=== PATIENT | female | born 1995 | race Hispanic/Latino ===

== ENCOUNTER 2018-01-28 16:15 | Emergency (ER) | payer SELFPAY ==
--- OUTSIDE RECORDS SUMMARY | 2018-01-28 16:18 | XMS REPORT | Clinical Summary ---
:1995 Author Organization [facility] Address [address] [place] [address] Care Team Providers Name Role Phone Reji Pineda RN Primary Care Provider Unavailable Allergies Active Allergy Reactions Severity Noted Date Comments Penicillins Rash Low 11/01/2016 Current Medications No known medications Active Problems Problem Noted Date Hydronephrosis with obstructing calculus 11/02/2016 Pyelonephritis, acute 11/02/2016 Leukocytosis 11/01/2016 Sepsis 11/01/2016 Social History Tobacco Use Types Packs/Day Years Used Date Never Smoker Alcohol Use Drinks/Week oz/Week Comments No Sex Assigned at Date Recorded Not on file Last Filed Vital Signs Not on file Plan of Treatment Health Maintenance Due Date Last Done Comments CERVICAL CANCER SCREENING 2014 INFLUENZA VACCINE 03/01/2018 Implants Implanted Type Area Grinder Outside Diameter Device Expiration Model / Identifier Date Serial / Lot Stent Uretl Universa 6fr 24cm Hydrphlc With Gw - [id number] Urological N/A: [employer] 08/09/2019 [id number] / Implanted: 11/01/2016 (Quantity not on file) Implants or N/A / Sets [id number] Stent Uretl Universa 6fr 24cm Hydrphlc With Gw - [id number] Urological Left: [employer] 08/23/2019 [id number] / Implanted: Qty: 1 on 11/04/2016 by Monica Alvarado MD Implants or N/A / Sets [id number] Results Not on fileafter 01/27/2017
[2018-01-28] MEDS ORDERED: CYCLOBENZAPRINE 10 MG TAB ONE (17:09)
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
[2018-01-28 18:42] VITALS: TEMP 99
[2018-01-28 18:44] VITALS: BP 120/69; O2SAT 100
== END 2018-01-28 18:38 | disposition home or self-care (01) ==
LOC: ER 16:15
DX: S33.5XXA Sprain of ligaments of lumbar spine, initial encounter (principal); V49.49XA Driver injured in collision with other motor vehicles in traffic accident, initial encounter; Y93.89 Activity, other specified; Y92.410 Unspecified street and highway as the place of occurrence of the external cause; Z88.1 Allergy status to other antibiotic agents; Z88.0 Allergy status to penicillin; N39.0 Urinary tract infection, site not specified
CPT/HCPCS: 72100; 87077; 87086; 87088; 87186; 99284

== ENCOUNTER 2018-04-17 08:18 | Emergency (ER) | payer SELFPAY ==
--- OUTSIDE RECORDS SUMMARY | 2018-04-17 08:20 | XMS REPORT | Clinical Summary ---
:1995 Author Organization [facility] Address [address] [place] [id number] Care Team Providers Name Role Phone Reji [...] INFLUENZA VACCINE 03/01/2018 Implants Implanted Type Area Esl Instructor Device Expiration Model / Identifier Date Serial / Lot Stent Uretl Universa 6fr 24cm Hydrphlc With Gw - [id number] Urological N/A: [employer] 08/09/2019 [id number] / Implanted: 11/01/2016 (Quantity not on file) Implants or N/A / Sets [id number] Stent U[employer]a 6fr 24cm Hydrphlc With Gw - [id number] Urological Left: [employer] 08/23/2019 [id number] / Implanted: Qty: 1 on 11/04/2016 by Monica Alvarado MD Implants or N/A / Sets [id number] Results Not on fileafter 04/16/2017
[2018-04-17] MEDS ORDERED: ONDANSETRON 4 MG/2 ML VIAL ONE (08:57)
[2018-04-17] MEDS ORDERED: NA CHLORIDE 0.9% 1,000 ML ONE (08:57)
[2018-04-17] MEDS ORDERED: KETOROLAC 30 MG/ML INJ ONE (08:57)
[2018-04-17 09:09] LABS: Absolute Lymphocytes (CBC) 2.4 K/uL (0.7-4.9); Absolute Monocytes 0.5 K/uL (0.1-1.3); Absolute Neutrophil 5.3 K/uL (1.8-8.0); Basophils % 0.5 % (0-1.3); Eosinophils % 1.7 % (0-4.4); Hematocrit 40.2 % (36.0-45.0); Lymphocytes % 29.2 % (15.3-44.8); MCH 28.5 pg (27.0-35.0); MCV 84.5 fL (80-100); MPV 9.3 fL (7.6-11.3); Monocytes % 5.7 % (3.3-12.3); RBC Red Blood Cell Count 4.76 M/uL (3.86-4.86)
[2018-04-17 09:21] LABS: Urine Blood 1+ (NEG); Urine Glucose NEGATIVE (NEG); Urine Protein NEGATIVE (NEG); Urine Specific Gravity >1.030 (1.005-1.030); Urine pH 5.5 (5.0-7.0)
[2018-04-17 09:24] LABS: Albumin 3.9 g/dL (3.4-5.0); Bilirubin Direct 0.2 mg/dL (0-0.2); Bilirubin Total 0.5 mg/dL (0.2-1.0); Potassium 3.5 mmol/L (3.5-5.1)
[2018-04-17 09:28] LABS: Urine Bacteria >50 /HPF (<20)
[2018-04-17 09:29] LABS: Urine Culture Reflex Order NOT NEEDED
--- NOTE | 2018-04-17 09:51 | RAD REPORT ---
EXAM DESCRIPTION: CT - Stone Protocol - 04/17/2018 9:33 am CLINICAL HISTORY: Back pain, epigastric pain, history of kidney stones with lithotripsy COMPARISON: CT study August 2016 TECHNIQUE: Axial 5 mm thick images were obtained without oral or IV contrast. The [id number] span s the entirety of the system partially obscuring uppermost abdomen and lung bases. All CT scans are performed using dose optimization technique as appropriate and may include automated exposure control or mA/KV adjustment according to patient size. FINDINGS: No hydronephrosis is present and no obstructing ureteral calculi. No suspicious renal mass es. Isodense masses and pyelonephritis are not excluded on a stone protocol CT scan. Punctate less th an 1 mm sized caliceal calculi present lower pole right kidney. No calculi seen in the contracted uri nary bladder. Uterus and ovaries show no suspicious finding. Imaged portions of the liver, spleen and pancreas show no suspicious findings on non-contrast imaging . No gallbladder or biliary tree abnormality identified. Gallstones can be occult. Liver shows a bord jose luis to mild fatty infiltration pattern. No adrenal abnormality. No suspicious bowel findings. No appendicitis. No hernia, mass or bulky lymphadenopathy noted. No free air, free fluid or inflammatory stranding. No significant bony abnormality. IMPRESSION: No hydronephrosis, obstructing calculus or other acute finding. Punctate less than 1 mm size caliceal calculi seen lower pole right kidney similar to comparison. Isodense masses and pyelonephritis are not excluded on stone protocol technique. No other significant finding or significant change from prior imaging.
--- NOTE | 2018-04-17 09:55 | ER ---
Nurse's Notes [facility] Name: Gloria Ibarra Age: 23 yrs Sex: Female : 1995 Arrival Date: 04/17/2018 Time: 08:20 Bed 15 Private MD: None, None Diagnosis: Urinary tract infection, site not specified Presentation: 04/17 08:28 Presenting complaint: Patient states: " I am having pain in my lower back and my ph stomach. It started yesterday and was worse this morning." Reports mid back and epigastric pain, also reports N/V, denies fever or diarrhea. Transition of care: patient was not received from another setting of care. Onset of symptoms was April 17, 2018. Risk Assessment: Do you want to hurt yourself or someone else? Patient reports no desire to harm self or others. Initial Sepsis Screen: Does the patient meet any 2 criteria? No. Patient's initial sepsis screen is negative. Does the patient have a suspected source of infection? No. Patient's initial sepsis screen is negative. Care prior to arrival: None. 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 - Social history:: Smoking status: Patient/guardian denies using tobacco. - Ebola Screening: : No symptoms or risks identified at this time. Screenin:32 Abuse screen: Denies threats or abuse. Denies injuries from another. Nutritional ph screening: On. Tuberculosis screening: No symptoms or risk factors identified. Fall Risk None identified. Assessment: 08:32 General: Appears in no apparent distress. uncomfortable, obese, well groomed, Behavior ph is calm, cooperative, appropriate for age, Denies fever. Pain: Complains of pain in epigastric area and lumbar area. Neuro: Level of Consciousness is awake, alert, obeys commands, Oriented to person, place, time, situation. Cardiovascular: Capillary refill is > 3 seconds Patient's skin is warm and dry. Respiratory: Airway is patent Respiratory effort is even, unlabored, Respiratory pattern is regular, symmetrical. GI: Abdomen is non-distended, obese, Bowel sounds present X 4 quads. Abd is soft X 4 quads Abdomen is tender to palpation in epigastric area Reports upper abdominal pain, epigastric pain, nausea, vomiting. : Denies burning with urination, inability to void, urinary frequency. Derm: Skin is intact, is healthy with good turgor, Skin is pink, warm \\T\\ dry. Musculoskeletal: Circulation, motion, and sensation intact. Range of motion: intact in all extremities. 10:00 Reassessment: Patient appears in no apparent distress at this time. Patient and/or ph family updated on plan of care and expected duration. Pain level reassessed. Patient is alert, oriented x 3, equal unlabored respirations, skin warm/dry/pink. Pt reports that pain has decreased to 7/10 and denies nausea, awaiting d/c. Vital Signs: 08:30 BP 120 / 87; Pulse 81; Resp 18; Temp 97.9; Pulse Ox 100% on R/A; Weight 95.25 kg; ph Height 5 ft. 6 in. (167.64 cm); Pain 9/10; 09:28 BP 103 / 71; Pulse 72; Resp 16; Pulse Ox 99% on R/A; dh3 10:26 BP 111 / 73; Pulse 76; Resp 18; Temp 97.8; Pulse Ox 99% on R/A; ph 08:30 Body Mass Index 33.89 (95.25 kg, 167.64 cm) ph ED Course: 08:20 Patient arrived in ED. sb2 08:20 None, None is Private Physician. sb2 08:22 Maria Del Carmen Pate FNP-C [facility]. kb 08:22 Edson Elizabeth MD is Attending Physician. kb 08:22 Saumya Heller, RENETTA is Primary Nurse. ph 08:30 Triage completed. ph 08:32 Arm band placed on. ph 08:34 Patient has correct armband on for positive identification. Bed in low position. Call ph light in reach. Side rails up X 1. Pulse ox on. NIBP on. Warm blanket given. 08:37 Initial lab(s) drawn, by me, sent to lab. Inserted saline lock: 20 gauge in left dh3 antecubital area, using aseptic technique. Blood collected. 08:37 Urine collected: clean catch specimen, cloudy, marely colored. [facility] 09:33 CT Stone Protocol In Process Unspecified. EDIL 09:33 CT completed. Patient tolerated procedure well. Patient moved to IL. 10:27 No provider procedures requiring assistance completed. IV discontinued, intact, ph bleeding controlled, No redness/swelling at site. Pressure dressing applied. Administered Medications: 08:57 Drug: Zofran 4 mg Route: IVP; Site: left antecubital; ph 09:58 Follow up: Response: No adverse reaction; Nausea is decreased ph 08:57 Drug: TORadol 30 mg Route: IVP; Site: left antecubital; ph 10:25 Follow up: Response: No adverse reaction; Pain is decreased ph 08:58 Drug: NS 0.9% 1000 ml Route: IV; Rate: 1000 ml; Site: left antecubital; ph 10:25 Follow up: Response: No adverse reaction; IV Status: Completed infusion ph 09:55 Drug: Rocephin - (cefTRIAXone) 1 grams Route: IVPB; Infused Over: 30 mins; Site: left ph antecubital; 10:25 Follow up: Response: No adverse reaction; IV Status: Completed infusion ph Outcome: 09:54 Discharge ordered by . kb 10:27 Discharged to home ambulatory. ph 10:27 Condition: good 10:27 Discharge instructions given to patient, Instructed on discharge instructions, follow up and referral plans. medication usage, Demonstrated understanding of instructions, follow-up care, medications, Prescriptions given X 1. 10:28 Patient left the ED. ph Signatures: Dispatcher [employer] EDIL Maria Del Carmen Pate, Erica Pierce Patricia, RN RN Pat Sesay 3 Milli Mast
--- NOTE | 2018-04-17 09:55 | EDPHYS ---
Physician Documentation [facility] Name: Gloria Ibarra Age: 23 yrs Sex: Female : 1995 Arrival Date: 04/17/2018 Time: 08:20 Bed 15 Private MD: None, None ED Physician Edson Elizabeth HPI: 04/17 09:11 This 23 yrs old Female presents to ER via Ambulatory with complaints of Low kb Back Pain, Abdominal Pain. 09:44 The patient complains of pain in the left flank and right flank. The pain radiates to kb the epigastric area. Onset: The symptoms/episode began/occurred yesterday. Modifying factors: The symptoms are alleviated by nothing. the symptoms are aggravated by movement, palpation/percussion. Associated signs and symptoms: The patient has no apparent associated signs or symptoms. Severity of pain: At its worst the pain was moderate in the emergency department the pain is unchanged. The patient has experienced similar episodes in the past, a few times, today's symptoms are similar, to previous kidney stones. The patient has not recently seen a physician. 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 - Social history:: Smoking status: Patient/guardian denies using tobacco. - Ebola Screening: : No symptoms or risks identified at this time. ROS: 09:48 Constitutional: Negative for fever, chills, and weight loss, Cardiovascular: Negative kb for chest pain, palpitations, and edema, Respiratory: Negative for shortness of breath, cough, wheezing, and pleuritic chest pain, : Negative for injury, bleeding, discharge, and swelling, MS/Extremity: Negative for injury and deformity, Skin: Negative for injury, rash, and discoloration, Neuro: Negative for headache, weakness, numbness, tingling, and seizure. 09:48 Abdomen/GI: Positive for abdominal pain, Negative for nausea, vomiting, and diarrhea. 09:48 Back: Positive for flank pain, bilaterally. Exam: 09:48 Constitutional: This is a well developed, well nourished patient who is awake, alert, kb and in no acute distress. Head/Face: Normocephalic, atraumatic. Neck: Trachea midline, no thyromegaly or masses palpated, and no cervical lymphadenopathy. Supple, full range of motion without nuchal rigidity, or vertebral point tenderness. No Meningismus. Chest/axilla: Normal chest wall appearance and motion. Nontender with no deformity. No lesions are appreciated. Cardiovascular: Regular rate and rhythm with a normal S1 and S2. No gallops, murmurs, or rubs. Normal PMI, no JVD. No pulse deficits. Respiratory: Lungs have equal breath sounds bilaterally, clear to auscultation and percussion. No rales, rhonchi or wheezes noted. No increased work of breathing, no retractions or nasal flaring. Skin: Warm, dry with normal turgor. Normal color with no rashes, no lesions, and no evidence of cellulitis. MS/ Extremity: Pulses equal, no cyanosis. Neurovascular intact. Full, normal range of motion. Neuro: Awake and alert, GCS 15, oriented to person, place, time, and situation. Cranial nerves II-XII grossly intact. Motor strength 5/5 in all extremities. Sensory grossly intact. Cerebellar exam normal. Normal gait. 09:48 Abdomen/GI: Inspection: abdomen appears normal, Bowel sounds: normal, in all quadrants, Palpation: soft, in all quadrants, mild abdominal tenderness, in the left upper quadrant. 09:48 Back: CVA tenderness, that is moderate, is noted bilaterally. Vital Signs: 08:30 BP 120 / 87; Pulse 81; Resp 18; Temp 97.9; Pulse Ox 100% on R/A; Weight 95.25 kg; ph Height 5 ft. 6 in. (167.64 cm); Pain 9/10; 09:28 BP 103 / 71; Pulse 72; Resp 16; Pulse Ox 99% on R/A; dh3 10:26 BP 111 / 73; Pulse 76; Resp 18; Temp 97.8; Pulse Ox 99% on R/A; ph 08:30 Body Mass Index 33.89 (95.25 kg, 167.64 cm) ph MDM: 08:22 Patient medically screened. kb 09:46 Data reviewed: vital signs, nurses notes. Data interpreted: Pulse oximetry: on room air kb is 99 %. Interpretation: normal. 09:53 Counseling: I had a detailed discussion with the patient and/or guardian regarding: the kb historical points, exam findings, and any diagnostic results supporting the discharge/admit diagnosis, lab results, radiology results, the need for outpatient follow up, a family practitioner, to return to the emergency department if symptoms worsen or persist or if there are any questions or concerns that arise at home. 04/17 08:27 Order name: Amylase, Serum; Complete Time: 09:25 kb 04/17 08:27 Order name: Basic Metabolic Panel; Complete Time: 09:25 kb 04/17 08:27 Order name: CBC with Diff; Complete Time: 09:25 kb 04/17 08:27 Order name: Hepatic Function; Complete Time: 09:25 kb 04/17 08:27 Order name: Lipase; Complete Time: 09:25 kb 04/17 08:47 Order name: Urine Dipstick--Ancillary (enter results); Complete Time: 09:25 bd 04/17 08:45 Order name: CT Stone Protocol; Complete Time: 09:53 kb 04/17 08:47 Order name: Urine --Ancillary (enter results); Complete Time: 09:25 bd 04/17 08:50 Order name: Urine Microscopic Only; Complete Time: 09:31 kb 04/17 08:50 Order name: Urine Culture kb 04/17 08:27 Order name: Urine Test (obtain specimen); Complete Time: 08:48 kb 04/17 08:27 Order name: IV Saline Lock; Complete Time: 08:49 kb 04/17 08:27 Order name: Labs collected and sent; Complete Time: 08:48 kb 04/17 08:27 Order name: Urine Dipstick-Ancillary (obtain specimen); Complete Time: 08:48 kb Administered Medications: 08:57 Drug: Zofran 4 mg Route: IVP; Site: left antecubital; ph 09:58 Follow up: Response: No adverse reaction; Nausea is decreased ph 08:57 Drug: TORadol 30 mg Route: IVP; Site: left antecubital; ph 10:25 Follow up: Response: No adverse reaction; Pain is decreased ph 08:58 Drug: NS 0.9% 1000 ml Route: IV; Rate: 1000 ml; Site: left antecubital; ph 10:25 Follow up: Response: No adverse reaction; IV Status: Completed infusion ph 09:55 Drug: Rocephin - (cefTRIAXone) 1 grams Route: IVPB; Infused Over: 30 mins; Site: left ph antecubital; 10:25 Follow up: Response: No adverse reaction; IV Status: Completed infusion ph Disposition: 14:51 Co-signature as Attending Physician, Edson Elizabeth MD I agree with the assessment and julieta plan of care. Disposition: 04/17/18 09:54 Discharged to Home. Impression: Urinary tract infection, site not specified. - Condition is Stable. - Discharge Instructions: Urinary Tract Infection, Adult, [id number]. - Prescriptions for Macrobid 100 mg Oral Capsule - take 1 capsule by ORAL route every 12 hours for 7 days; 14 capsule. - Medication Reconciliation Form, Thank You Letter, Antibiotic Education, Prescription Opioid Use, Work release form form. - Follow up: Emergency Department; When: As needed; Reason: Worsening of condition. Follow up: Private Physician; When: 2 - 3 days; Reason: Recheck today's complaints, Continuance of care, Re-evaluation by your physician. Signatures: Dispatcher [employer] EDMS Maria Del Carmen Pate, RACECAR DRIVER-C RACECAR DRIVER-Edson Wing MD MD cha Hall, Patricia RN RN ph Corrections: (The following items were deleted from the chart) 09:44 09:41 The patient presents with abdominal pain in the epigastric area, kb kb 10:28 09:54 04/17/2018 09:54 Discharged to Home. Impression: Urinary tract infection, site ph not specified. Condition is Stable. Forms are Medication Reconciliation Form, Thank You Letter, Antibiotic Education, Prescription Opioid Use. Follow up: Emergency Department; When: As needed; Reason: Worsening of condition. Follow up: Private Physician; When: 2 - 3 days; Reason: Recheck today's complaints, Continuance of care, Re-evaluation by your physician. kb
[2018-04-17] MEDS ORDERED: CEFTRIAXONE/SWI 1gm 1 GM/10 ML SYR ONE (09:56)
[2018-04-17 10:34] VITALS: O2SAT 99
[2018-04-17 10:35] VITALS: BP 111/73; TEMP 97.8
== END 2018-04-17 10:28 | disposition home or self-care (01) ==
LOC: ER 08:18
DX: N39.0 Urinary tract infection, site not specified (principal); Z87.442 Personal history of urinary calculi; Z88.0 Allergy status to penicillin; Z88.1 Allergy status to other antibiotic agents
CPT/HCPCS: 36415; 74176; 76377; 80048; 80076; 81003; 81015; 81025; 82150; 83690; 85025; 87077; 87086; 87088; 87186; 96361; 96365; 96375; 99284; J0696; J2405; J7030

== ENCOUNTER 2019-03-28 08:00 | Emergency (ER) | payer SELFPAY ==
--- OUTSIDE RECORDS SUMMARY | 2019-03-28 08:04 | XMS REPORT | Clinical Summary ---
:1995 Author Organization [facility] Address [address] [place] [id number] Care Team Providers Name Role Phone Reji Pineda RN Primary Care Provider Unavailable Allergies Active Allergy Reactions Severity Noted Date Comments Penicillins Rash Low 11/01/2016 Medications No known medications Active Problems Problem Noted Date Hydronephrosis with obstructing calculus 11/02/2016 Pyelonephritis, acute 11/02/2016 Leukocytosis 11/01/2016 Sepsis 11/01/2016 Social History Tobacco Use Types Packs/Day Years Used Date Never Smoker Alcohol Use Drinks/Week oz/Week Comments No Sex Assigned at Date Recorded Not on file Job Start Date Occupation Industry Not on file Not on file Not on file Travel History Travel Start Travel End No recent travel history available. Last Filed Vital Signs Not on file Plan of Treatment Health Maintenance Due Date Last Done Comments CERVICAL CANCER SCREENING 2014 INFLUENZA VACCINE 03/01/2019 Implants Implanted Type [employer] Device Shelf Model / Identifier Expiration Serial / Date Lot Stent Uretl Universa 6fr 24cm Hydrphlc With Gw - [id number] Urological N/A: [employer] 08/09/2019 [id number] / Implanted: 11/01/2016 at [facility] (Quantity not on file) Implants or N/A / Sets [id number] Stent Uretl Universa 6fr 24cm Hydrphlc With Gw - [id number] Urological Left: [employer] 08/23/2019 [id number] / Implanted: Qty: 1 on 11/04/2016 by Monica Alvarado MD at [facility] Implants or N/A / Sets [id number] Results Not on fileafter 03/27/2018 Advance Directives For more information, please contact: [phone] Type Date Recorded 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
--- OUTSIDE RECORDS SUMMARY | 2019-03-28 08:04 | XMS REPORT ---
:1995 [facility] Address [address] [place] [address] Care Team Providers Name Role Phone Unavailable Unavailable Unavailable Payers Payer Name Policy Type Policy Number Effective Date Expiration Date Problems This patient has no known problems. Allergies, Adverse Reactions, Alerts Allergy Name Allergy Status Severity Reaction(s) Onset Inactive Treating Comments Type Date Date Clinician Penicillins DA Active MO 2018-10 00:00:0 0 Medications This patient has no known medications. Results Test Description Test Time Test Comments Text Results Atomic Results Result Comments - CT ABD PELVIS W/O CONT 2019-02-26 12:01:00 Patient Name: SANDY MURRIETA Unit No: [id number] EXAMS: CPT CODE: [id number] CT ABD PELVIS W/O CONT 6[address] CT Abdomen and Pelvis without contrast. Location: B2 Clinical indication: 24-year-old with left upper quadrant pain and left flank pain. History of calculi. Comparison: November 04, 2018 Technique: Computed axial images were obtained from the diaphragms through the pubic symphysis without IV contrast. Suboptimal evaluation of viscera due to lack of contrast. Up to date CT equipment and radiation dose technique were utilized. Findings: Abdomen: There is some mild lower lung airspace opacification, most likely atelectasis. There is a 4 mm nodule of the right middle lobe. There is a punctate nonobstructing right renal calculus. No ureteral calculus or hydronephrosis. No perinephric inflammatory stranding. The liver, gallbladder, spleen, adrenal glands, pancreas, and bowel are without acute abnormality. Pelvis: Normal appendix. Uterus is present. Urinary bladder is partially distended. No free pelvic fluid. No acute osseous abnormality. Impression: 1. No ureteral calculus or hydronephrosis. 2. Punctate nonobstructing right renal calculus. at 1201 Reported and signed by: Nadir Schmitt MD CC: Leda Borjas SENIOR SOFTWARE SYSTEMS ENGINEER Dictated Date/Time: 02/26/2019 (1201) Technologist: Dada Lott CTDI: 12.49 DLP: 735.03 Trnscrpt: 02/26/2019 (1201) HarithaR.[email or web address] [facility] NAME: GLENNY[address] PHYS: [place] [id number] : 1995 AGE: 24 SEX: F LOC: B.ERS PHONE #: [phone] EXAM DATE: 02/26/2019 STATUS: REG ER FAX #: [phone] RAD #: D/C DT PAGE 1 Signed Report Patient Name: SANDY MURRIETA Unit No: [id number] EXAMS: CPT CODE: [id number] CT ABD PELVIS W/O CONT 03960 <Continued> Orig Print D/T: S: 02/26/2019 (0623) [facility] NAME: GLENNY[address] PHYS: [place]eda [place], [place] [address] : 1995 AGE: 24 SEX: F LOC: B.ERS PHONE #: [phone] EXAM DATE: 02/26/2019 STATUS: REG ER FAX #: [phone] RAD #: D/C DT PAGE 2 Signed Report HEPATIC FUNCTION PANEL 2019-02-26 11:46:00 Test Item Value Reference Range Comments TOTAL PROTEIN (test code=PROT) 8.2 G/DL 6.4-8.2 ALBUMIN (test code=ALB) 3.9 G/DL 3.4-5.0 BILIRUBIN TOTAL (test code=BILT) 0.58 MG/DL 0.00-1.00 BILIRUBIN DIRECT (test code=BILD) 0.16 MG/DL 0.00-0.30 BILIRUBIN INDIRECT (test code=BILIND) 0.42 MG/DL 0.2-1.3 SGOT/AST (test code=AST) 24 Unit/L 15-37 SGPT/ALT (test code=ALT) 33 Unit/L 12-78 ALKALINE PHOSPHATASE TOTAL (test code=ALKP) 84 Unit/L 45-117 INDEX HEMOLYSIS (test code=HEMINDEX) 1 NORMAL <10 MG Index/DL 1 NORMAL INDEX ICTERIC (test code=ICTINDEX) 1 NORMAL <2 MG Index/DL 1 NORMAL INDEX LIPEMIA (test code=LIPINDEX) 1 NORMAL <50 MG Index/DL 1 NORMAL [id number] 11:46:00 Test Item Value Reference Range Comments LIPASE (test code=LIP) 85 Unit/L 114-286 HEPATIC FUNCTION [id number] 11:43:00 Test Item Value Reference Range Comments TOTAL PROTEIN (test code=PROT) G/DL 6.4-8.2 ALBUMIN (test code=ALB) 3.9 G/DL 3.4-5.0 BILIRUBIN TOTAL (test code=BILT) MG/DL 0.00-1.00 BILIRUBIN DIRECT (test code=BILD) 0.16 MG/DL 0.00-0.30 BILIRUBIN INDIRECT (test MG/DL 0.2-1.3 code=BILIND) SGOT/AST (test code=AST) 24 Unit/L 15-37 SGPT/ALT (test code=ALT) 33 Unit/L 12-78 ALKALINE PHOSPHATASE TOTAL (test Unit/L 45-117 code=ALKP) INDEX HEMOLYSIS (test 1 NORMAL <10 MG Index/DL 1 NORMAL code=HEMINDEX) INDEX ICTERIC (test code=ICTINDEX) 1 NORMAL <2 MG Index/DL 1 NORMAL INDEX LIPEMIA (test code=LIPINDEX) 1 NORMAL <50 MG Index/DL 1 NORMAL [id number] 11:43:00 Test Item Value Reference Range Comments LIPASE (test code=LIP) 85 Unit/L 114-286 UA RFLX MICR CULT IF [id number] 11:34:00 Test Item Value Reference Range Comments UA COLOR (test code=COLU) YELLOW DESCRIPT YELLOW UA APPEARANCE (test code=APPU) CLOUDY DESCRIPT CLEAR UA GLUCOSE DIPSTICK (test NEGATIVE (0) mg/dL (NEG) 0 code=DGLUU) UA BILIRUBIN DIPSTICK (test NEGATIVE (0) mg/dL (NEG) 0 code=BILU) UA KETONE DIPSTICK (test 0 (NEG) mg/dL (NEG) 0 code=KETU) UA SPECIFIC GRAVITY (test 1.023 SG 1.001-1.035 code=SGU) UA BLOOD DIPSTICK (test code=YASMANI) 0.20-0.50 (2+) mg/DL (NEG) 0 UA PH DIPSTICK (test code=RAKESH) 5.0 pH UNITS 4.6-8.0 UA PROTEIN DIPSTICK (test NEGATIVE (0) mg/dL <30 (1+) code=PROU) UA UROBILINIOGEN DIPSTICK (test 4 mg/dL <2.0 (1+) code=URO) UA NITRITE DIPSTICK (test POSITIVE SCREEN NEG code=BRI) UA LEUKOCYTE ESTERASE DIPSTICK 500 (3+) Leuk/mcL (NEG) 0 (test code=LEUU) UA COMMENT (test code=COMU) CLEAN CATCH SPEC Notes SpecComment UA WBC (test code=WBCU) 40-50 #WBC/HPF 0-3 UA RBC (test code=RBCU) 10-20 #RBC/HPF 0-3 UA BACTERIA (test code=BACU) MANY /HPF NONE-FEW UA SQUAMOUS CELLS (test code=SQU) MANY >20 /HPF NONE-SQepi UA MUCUS (test code=MUCU) RARE /LPF NONE UA CULTURE NEEDED? (test Crit met CULT-OK Criteria Cult byWBC code=UACULT) Indication for culture: abdominal painUR HCG [id number] 11:34:00 Test Item Value Reference Range Comments UR HCG QUAL (test NEGATIVE NEG Very dilute urines with a low code=HCGQLU) specific gravity may notcontain sales representative uniforms levels of hCG. Indication for culture: abdominal painUA RFLX MICR CULT IF [id number] 11:32:00 Test Item Value Reference Range Comments UA COLOR (test code=COLU) DESCRIPT YELLOW UA APPEARANCE (test code=APPU) DESCRIPT CLEAR UA GLUCOSE DIPSTICK (test code=DGLUU) mg/dL (NEG) 0 UA BILIRUBIN DIPSTICK (test code=BILU) mg/dL (NEG) 0 UA KETONE DIPSTICK (test code=KETU) mg/dL (NEG) 0 UA SPECIFIC GRAVITY (test code=SGU) SG 1.001-1.035 UA BLOOD DIPSTICK (test code=YASMANI) mg/DL (NEG) 0 UA PH DIPSTICK (test code=RAKESH) pH UNITS 4.6-8.0 UA PROTEIN DIPSTICK (test code=PROU) mg/dL <30 (1+) UA UROBILINIOGEN DIPSTICK (test code=URO) mg/dL <2.0 (1+) UA NITRITE DIPSTICK (test code=BRI) SCREEN NEG UA LEUKOCYTE ESTERASE DIPSTICK (test code=LEUU) Leuk/mcL (NEG) 0 UA RBC (test code=RBCU) #RBC/HPF 0-3 Indication for culture: abdominal painUR HCG [id number] 11:32:00 Test Item Value Reference Range Comments UR HCG QUAL (test NEGATIVE NEG Very dilute urines with a low code=HCGQLU) specific gravity may notcontain sales representative uniforms levels of hCG. Indication for culture: abdominal painCBC W/O [id number] 11:29:00 Test Item Value Reference Range Comments WHITE BLOOD CELL (test code=WBC) 6.9 K/mm3 4.1-12.1 RED BLOOD CELL (test code=RBC) 5.11 M/mm3 3.8-5.5 HEMOGLOBIN (test code=HGB) 13.9 G/DL 10.6-15.8 HEMATOCRIT (test code=HCT) 45.2 % 31.8-47.4 MEAN CELL VOLUME (test code=MCV) 88.5 fL 80.1-101.1 MEAN CELL HGB (test code=MCH) 27.2 pg 25.3-35.3 MEAN CELL HGB CONCETRATION (test code=MCHC) 30.8 G/DL 32.7-35.1 RED CELL DISTRIBUTION WIDTH (test code=RDW) 13.4 % 12.2-16.4 PLATELET COUNT (test code=PLT) 207 K/mm3 155-337 MEAN PLATELET VOLUME (test code=MPV) 11.0 fL 6.8-11.2 CHEMISTRY 7 [id number] 11:20:00 Test Item Value Reference Range Comments IONIZED CALCIUM (test code=CAIABG) mmol/L 1.13-1.32 ISTAT-TCO2 VENOUS (test code=TCO2VP) MMOL/L 21-32 ISTAT-SODIUM (test code=NAP) MMOL/L 135-148 ISTAT-POTASSIUM (test code=KP) MMOL/L 3.5-5.9 ISTAT-CHLORIDE (test code=CLP) MMOL/L 98-106 ISTAT-ANION GAP (test code=GAPP) MEQ/L 10-20 ISTAT-GLUCOSE (test code=GLUP) MG/DL 70-119 ISTAT-BUN (test code=BUNP) MG/DL 8-28 BEDSIDE CREATININE (test code=CREATBED) MG/DL 0.6-1.2 GLOMERULAR FILTRATION RATE POC (test code=GFRBED) 121 71-165 CHEMISTRY 7 [id number] 11:20:00 Test Item Value Reference Range Comments IONIZED CALCIUM (test 1.21 mmol/L 1.13-1.32 code=CAIABG) ISTAT-TCO2 VENOUS (test 26 MMOL/L 21-32 code=TCO2VP) ISTAT-SAMPLE SOURCE (test UNKNOWN SPEC TYPE Descript Specimen code=SRCIST) ISTAT-SODIUM (test code=NAP) 139 MMOL/L 135-148 ISTAT-POTASSIUM (test code=KP) 3.6 MMOL/L 3.5-5.9 ISTAT-CHLORIDE (test code=CLP) 100 MMOL/L 98-106 ISTAT-ANION GAP (test code=GAPP) 18.0 MEQ/L 10-20 ISTAT-GLUCOSE (test code=GLUP) 92 MG/DL 70-119 ISTAT-BUN (test code=BUNP) 9 MG/DL 8-28 BEDSIDE CREATININE (test 0.6 MG/DL 0.6-1.2 code=CREATBED) GLOMERULAR FILTRATION RATE POC 121 71-165 (test code=GFRBED) - CT ABD PELVIS [id number] 01:36:00 Patient Name: SANDY MURRIETA Unit No: [id number] EXAMS: CPT CODE: [id number] CT ABD PELVIS W/CONT 87364 CT ABDOMEN AND PELVIS WITH IV CONTRAST HISTORY: Epigastric pain with N/V and LLQ pain COMPARISON: None. TECHNIQUE: Axial CT images of the abdomen and pelvis were obtained with coronal and/or sagittal reformatted views. Automated exposure control, iterative reconstruction technique, and/or adjustment of mA and/or kV according to patient's size was utilized for radiation dose reduction. IV CONTRAST: 75 ml Isovue-300. PO CONTRAST: None. Location: U19. FINDINGS: Mild atelectasis seen in both lung bases. The heart size is normal. The gallbladder is partially distended without surrounding inflammatory changes. The liver, spleen, pancreas and adrenal glands are unremarkable. 1.6 cm probable left renal cyst. Both kidneys are otherwise similar in size, shape and enhancement without evidence of hydronephrosis. Urinary bladder is contracted. The uterus and ovaries are grossly unremarkable. No free air , free fluid or evidence of a bowel obstruction. Stomach is collapsed. The appendix is normal. No bowel wall thickening. The aorta is normal in caliber. No abdominalor pelvic adenopathy. The bones are unremarkable. IMPRESSION: Normal appendix. No inflammatory changes in the abdomen or pelvis. at 0136 Reported and signed by: Juju Soni MD CC: Tess Zheng NP Dictated Date/Time: (013) Technologist: Carlos Antonio - Agency CTDI: 12.49 DLP: 741.46 Trnscrpt: 11/04/2018 (0136) HarithaR.SP17 [facility] NAME: SANDY MURRIETA [address] [place] [address] PHYS: Tess Coronado NP [place], [place] [address] : 1995 AGE: 23 SEX: F LOC: B.ERS PHONE #: [phone] EXAM DATE: 11/04/2018 STATUS: REG ER FAX #: [phone] RAD #: D/C DT PAGE 1 Signed Report Patient Name: SANDY MURRIETA Unit No : [id number] EXAMS: CPT CODE: [id number] CT ABD PELVIS W/CONT 97176 <Continued> Orig Print D/T: S: 11/04/2018 (0140) [facility] [place] NAME: SANDY MURRIETA [address] [place] [address] Blvd PHYS: Tess Coronado NP [place], [place] [address] : 1995 AGE: 23 SEX: F LOC: DEANA PHONE #: [phone] EXAM DATE: 11/04/2018 STATUS: REG ER FAX #: [phone] RAD #: D/C DT PAGE 2 Signed ReportURINALYSIS [id number] 01:13:00 Test Item Value Reference Range Comments UA COLOR (test code=COLU) OLI DESCRIPT YELLOW UA APPEARANCE (test code=APPU) HAZY DESCRIPT CLEAR UA GLUCOSE DIPSTICK (test code=DGLUU) NEGATIVE (0) mg/dL (NEG) 0 UA BILIRUBIN DIPSTICK (test NEGATIVE (0) mg/dL (NEG) 0 code=BILU) UA KETONE DIPSTICK (test code=KETU) 1+ (5-15 mg/dL) mg/dL (NEG) 0 UA SPECIFIC GRAVITY (test code=SGU) 1.031 SG 1.001-1.035 UA BLOOD DIPSTICK (test code=YASMANI) 3+ mg/DL (NEG) 0 UA PH DIPSTICK (test code=RAKESH) 5.0 pH UNITS 4.6-8.0 UA PROTEIN DIPSTICK (test code=PROU) 30 (1+) mg/dL <30 (1+) UA UROBILINIOGEN DIPSTICK (test 2 mg/Dl <2.0 (1+) code=URO) UA NITRITE DIPSTICK (test code=BRI) POSITIVE SCREEN NEG UA LEUKOCYTE ESTERASE DIPSTICK (test 25(TR) Leuk/mcL (NEG) 0 code=LEUU) UA WBC (test code=WBCU) 10-20 #WBC/HPF 0-3 UA RBC (test code=RBCU) 5-10 #RBC/HPF 0-3 UA BACTERIA (test code=BACU) MANY /HPF NONE-FEW UA SQUAMOUS CELLS (test code=SQU) FEW >2 /HPF NONE-SQepi UA MUCUS (test code=MUCU) MOD /LPF NONE UR HCG [id number] 01:13:00 Test Item Value Reference Range Comments UR HCG QUAL (test NEGATIVE NEG Very dilute urines with a low code=HCGQLU) specific gravity may notcontain sales representative uniforms levels of hCG. URINALYSIS [id number] 01:10:00 Test Item Value Reference Range Comments UA COLOR (test code=COLU) DESCRIPT YELLOW UA APPEARANCE (test code=APPU) DESCRIPT CLEAR UA GLUCOSE DIPSTICK (test code=DGLUU) mg/dL (NEG) 0 UA BILIRUBIN DIPSTICK (test code=BILU) mg/dL (NEG) 0 UA KETONE DIPSTICK (test code=KETU) mg/dL (NEG) 0 UA SPECIFIC GRAVITY (test code=SGU) SG 1.001-1.035 UA BLOOD DIPSTICK (test code=YASMANI) mg/DL (NEG) 0 UA PH DIPSTICK (test code=RAKESH) pH UNITS 4.6-8.0 UA PROTEIN DIPSTICK (test code=PROU) mg/dL <30 (1+) UA UROBILINIOGEN DIPSTICK (test code=URO) mg/Dl <2.0 (1+) UA NITRITE DIPSTICK (test code=BRI) SCREEN NEG UA LEUKOCYTE ESTERASE DIPSTICK (test code=LEUU) Leuk/mcL (NEG) 0 UA RBC (test code=RBCU) #RBC/HPF 0-3 UR HCG [id number] 01:10:00 Test Item Value Reference Range Comments UR HCG QUAL (test NEGATIVE NEG Very dilute urines with a low code=HCGQLU) specific gravity may notcontain sales representative uniforms levels of hCG. PROCALCITONIN (PCT)2018-11-03 23:19:00 Test Item Value Reference Range Comments PROCALCITONIN (PCT) (test < 0.05 NG/ML 0.00-0.10 PROCALCITONIN (PCT) NORMAL code=PROCAL) RANGE (ADULT) <0.05 NG/ML-normal <0.50 NG/ML-low risk of severe sepsis and/or septic shock >2.00 NG/ML-high risk of severe sepsis and/or septic shcock Concentrations of <0.5 ng/mL do not exclude an infection.Localized infections (without systemic signs) or a systemicinfection in its initial stages (<6 hours) can be associatedwith such low concentrations. It is recommended to retestPCT within 6-24 hours if concentrations <2 NG/ML. Specimen comments: SEPSIS WORKUPBASIC METABOLIC [id number] 23:09:00 Test Item Value Reference Range Comments SODIUM (test code=NA) 136.0 mmol/L 133-144 POTASSIUM (test code=K) 3.6 mmol/L 3.5-5.1 CHLORIDE (test code=CL) 101 mmol/L 95-105 CARBON DIOXIDE (test 29 mmol/L 21-32 code=CO2) ANION GAP (test code=GAP) 6.0 GAP calc 4.0-15.0 GLUCOSE (test code=GLU) 106 MG/DL 70-110 BLOOD UREA NITROGEN (test 12 MG/DL 7-18 code=BUN) CREATININE (test 0.74 MG/DL 0.55-1.30 Results may be depressed code=CREAT) if patient is takingN-Acetylcysteine (NAC) and Metamizole (Dipyrone). CALCIUM (test code=CA) 9.0 MG/DL 8.5-10.1 INDEX HEMOLYSIS (test 1 NORMAL <10 MG 1 NORMAL code=HEMINDEX) Index/DL INDEX ICTERIC (test 1 NORMAL <2 MG 1 NORMAL code=ICTINDEX) Index/DL INDEX LIPEMIA (test 1 NORMAL <50 MG 1 NORMAL code=LIPINDEX) Index/DL Specimen comments: SEPSIS WORKUPHEPATIC FUNCTION [id number] 23:09:00 Test Item Value Reference Range Comments TOTAL PROTEIN (test code=PROT) 8.6 G/DL 6.4-8.2 ALBUMIN (test code=ALB) 4.3 G/DL 3.4-5.0 BILIRUBIN TOTAL (test code=BILT) 0.54 MG/DL 0.00-1.00 BILIRUBIN DIRECT (test code=BILD) 0.13 MG/DL 0.00-0.30 BILIRUBIN INDIRECT (test code=BILIND) 0.41 MG/DL 0.2-1.3 SGOT/AST (test code=AST) 18 Unit/L 15-37 SGPT/ALT (test code=ALT) 18 Unit/L 12-78 ALKALINE PHOSPHATASE TOTAL (test code=ALKP) 82 Unit/L 45-117 Specimen comments: SEPSIS [id number] 23:09:00 Test Item Value Reference Range Comments LIPASE (test code=LIP) 80 Unit/L 114-286 Specimen comments: SEPSIS [id number] 23:09:00 Test Item Value Reference Range Comments TROPONIN-I (test < 0.015 NG/ML 0.000-0.045 An elevated troponin value alone is code=TROPI) not sufficient todiagnose a myocardial infarction. Rather, the patient'sclinical presentation (history, physical exam) and ECGshould be used in conjunction with troponin in thediagnostic evaluation of suspected myocardial infarction. Aserial sampling protocol is recommended to facilitate theidentification of temporal changes in troponin levelscharacteristic of LA. Specimen comments: SEPSIS WORKUP- US ABDOMEN [id number] 23:06:00 Patient Name : SANDY MURRIETA Unit No: [id number] EXAMS: CPT CODE: [id number] US ABDOMEN LTD 27539 Site ID: [id number] Abdominal ultrasound, limited (Right upper quadrant) HISTORY: Epigastric pain and vomiting FINDINGS: The gallbladder is normally distended, with no evidence of gallbladder wall thickening, intraluminal stones or pericholecystic fluid. Sonographic Monsalve sign is negative. The liver is normal in size and echotexture. Hepatopedal flow is visualized in the main portal vein. The common bile duct appears normal measuring 0.2 cm in size. There is no intra or extrahepatic biliary dilatation. The visualized pancreas appears normal. The right kidney measures 10.9 x 5.2 cm. No hydronephrosis visualized. IMPRESSION: Negative right upper quadrant ultrasound. at 2306 Reported and signed by: Marco A Kern M.D. CC: Krystian Fernández MD Technologist: Mulu Fernández Trnscrbd D/T: 2018 (230) [id number] Probe: Orig Print D/T: S: 11/03/2018 ( 230) Probe: [facility] NAME: SANDY MURRIETA [address] [place] [address] PHYS: Krystian Ott [place], [place] [address] : 1994 AGE: 23 SEX: F LOC: B.ERS PHONE #: [phone] EXAM DATE: STATUS: TEN ER FAX #: [phone] RAD NO: Page 1 Signed ReportCBC W/O [id number] 22:50:00 Test Item Value Reference Range Comments WHITE BLOOD CELL (test code=WBC) 7.0 K/mm3 4.1-12.1 RED BLOOD CELL (test code=RBC) 5.08 M/mm3 3.8-5.5 HEMOGLOBIN (test code=HGB) 14.4 G/DL 10.6-15.8 HEMATOCRIT (test code=HCT) 45.5 % 31.8-47.4 MEAN CELL VOLUME (test code=MCV) 89.6 fL 80.1-101.1 MEAN CELL HGB (test code=MCH) 28.3 pg 25.3-35.3 MEAN CELL HGB CONCETRATION (test code=MCHC) 31.6 G/DL 32.7-35.1 RED CELL DISTRIBUTION WIDTH (test code=RDW) 13.5 % 12.2-16.4 PLATELET COUNT (test code=PLT) 200 K/mm3 155-337 MEAN PLATELET VOLUME (test code=MPV) 10.6 fL 6.8-11.2 LACTIC ACID [id number] 22:41:00 Test Item Value Reference Range Comments LACTIC ACID POC (test code=LACTP) 0.67 MMOL/L i 0.40-2.00 - XR CHEST 1 [id number] 21:15:00 FAX: Tess Zheng NP [phone] [facility]: E St: PRE Patient Name: SANDY MURRIETA Unit No: [id number] EXAMS: CPT CODE : [id number] XR CHEST 1 V 51383 EXAMINATION: - XR CHEST 1 V. LOCATION: R16. HISTORY : Code sepsis, abdominal pain, nausea, vomiting. COMPARISON: None. FINDINGS: Examination is limited due to portable technique , patient body habitus and low lung volumes. Cardiac silhouette/Mediastinal contour: Within normal limits. Lungs: No focal consolidation. No large pleural effusion. Osseous Structures : No acute osseous abnormalities. IMPRESSION: Low lung volumes, no focal consolidation. ElectronicallySigned by Kenia Lucero MD on 2018 at 2114 Reported and signed by: Kenia Lucero MD CC: Tess Zheng NP Dictated Date/Time: 11/2018 (2114)Technologist: Danica Ayoub - [employer] Transcribed Date/Time: 11/03/2018 (2114) By: [email or web address] Orig Print D/T : S: 11/03/2018 (2117) [facility] NAME: SANDY MURRIETA [address] [place] [address] PHYS: Tess Coronado [place], [place] [address] : 1995 AGE: 23 SEX: F LOC: B.ERS PHONE #: [phone] EXAM DATE: 11/03/2018STATUS: PRE ER FAX # : [phone] RAD NO: DC Dt: PAGE 1 Signed Report
--- NOTE | 2019-03-28 09:18 | ER ---
Nurse's Notes [facility] Name: Gloria Ibarra Age: 24 yrs Sex: Female : 1995 Arrival Date: 03/28/2019 Time: 08:04 Bed 20 Private MD: Diagnosis: Pain in right hand Presentation: 03/28 08:17 Presenting complaint: Patient states: R 4th and 5th finger pain after falling ss yesterday. Bruising and swelling noted to R fourth finger. Transition of care: patient was not received from another setting of care. Onset of symptoms was March 27, 2019. Risk Assessment: Do you want to hurt yourself or someone else? Patient reports no desire to harm self or others. Initial Sepsis Screen: Does the patient meet any 2 criteria? No. Patient's initial sepsis screen is negative. Does the patient have a suspected source of infection? No. Patient's initial sepsis screen is negative. Care prior to arrival: None. 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 - Social history:: Smoking status: Patient/guardian denies using tobacco, Patient/guardian denies using alcohol, street drugs, The patient lives with family. - Ebola Screening: : Patient denies exposure to infectious person Patient denies travel to an Ebola-affected area in the 21 days before illness onset. - Family history:: not pertinent. Screenin:20 Abuse screen: Denies threats or abuse. Nutritional screening: No deficits noted. aa5 Tuberculosis screening: No symptoms or risk factors identified. Fall Risk None identified. Assessment: 08:20 General: Appears comfortable, Behavior is calm, cooperative. Pain: Complains of pain in aa5 right ring finger and right little finger Pain does not radiate. Pain currently is 7 out of 10 on a pain scale. Quality of pain is described as aching, Pain began 1 day ago. Is continuous. Neuro: Level of Consciousness is awake, alert, obeys commands, Oriented to person, place, time, situation. Cardiovascular: Heart tones S1 S2 present Capillary refill < 3 seconds is brisk in bilateral fingers Rhythm is regular. Respiratory: Airway is patent Respiratory effort is even, unlabored, Respiratory pattern is regular, symmetrical. GI: No signs and/or symptoms were reported involving the gastrointestinal system. : No signs and/or symptoms were reported regarding the genitourinary system. EENT: No signs and/or symptoms were reported regarding the EENT system. Derm: Skin is pink, warm \T\ dry. Bruising noted to right ring finger. Musculoskeletal: Swelling present in right ring finger. 10:00 Reassessment: Patient is alert, oriented x 3, equal unlabored respirations, skin aa5 warm/dry/pink. Vital Signs: 08:16 BP 137 / 77; Pulse 76; Resp 14; Temp 97.6(TE); Pulse Ox 99% on R/A; Weight 102.06 kg; ss Height 5 ft. 6 in. (167.64 cm); Pain 7/10; 08:16 Body Mass Index 36.32 (102.06 kg, 167.64 cm) ED Course: 08:04 Patient arrived in ED. mr 08:13 Srikanth Hernandez MD is Attending Physician. ma2 08:16 Arm band placed on right wrist. ss 08:18 Triage completed. ss 08:20 Patient has correct armband on for positive identification. Bed in low position. Call aa5 light in reach. Side rails up X 1. 08:22 Bessy Toro, RN is Primary Nurse. aa5 09:04 Hand Right 3 View XRAY In Process Unspecified. EDMS 10:00 No provider procedures requiring assistance completed. Patient did not have IV access aa5 during this emergency room visit. Administered Medications: No medications were administered Outcome: 09:17 Discharge ordered by . ma2 10:00 Discharged to home ambulatory. aa5 10:00 Condition: good 10:00 Discharge instructions given to patient, Instructed on discharge instructions, follow up and referral plans. medication usage, Demonstrated understanding of instructions, follow-up care, medications, Prescriptions given X 1. 10:04 Patient left the ED. aa5 Signatures: Dispatcher [facility] Yaneth Stoddard mr Bessy Toro, RN RN aa5 Elvia Blancas RN RN ss Srikanth Hernandez MD MD ma2 Corrections: (The following items were deleted from the chart) 10:10 08:20 Derm: Skin is pink, warm \T\ dry. jenna [email or web address]
--- NOTE | 2019-03-28 09:19 | EDPHYS ---
Physician Documentation [facility] Name: Gloria Ibarra Age: 24 yrs Sex: Female : 1995 Arrival Date: 03/28/2019 Time: 08:04 Bed 20 Private MD: ED Physician Srikanth Hernandez HPI: 03/28 09:16 This 24 yrs old Female presents to ER via Ambulatory with complaints of Finger ma2 Injury. 09:16 Mechanism of injury: Crush injury:. Associated injuries: The patient sustained right ma2 4th fingher. Onset: The symptoms/episode began/occurred suddenly, 2 day(s) ago. The patient has not experienced similar symptoms in the past. 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 - Social history:: Smoking status: Patient/guardian denies using tobacco, Patient/guardian denies using alcohol, street drugs, The patient lives with family. - Ebola Screening: : Patient denies exposure to infectious person Patient denies travel to an Ebola-affected area in the 21 days before illness onset. - Family history:: not pertinent. ROS: 09:16 Constitutional: Negative for fever, chills, and weight loss, Cardiovascular: Negative ma2 for chest pain, palpitations, and edema, Respiratory: Negative for shortness of breath, cough, wheezing, and pleuritic chest pain, Abdomen/GI: Negative for abdominal pain, nausea, diarrhea, and constipation, Back: Negative for injury and pain. 09:16 All other systems are negative. Exam: 09:16 Constitutional: This is a well developed, well nourished patient who is awake, alert, ma2 and in no acute distress. Cardiovascular: Regular rate and rhythm with a normal S1 and S2. No gallops, murmurs, or rubs. Normal PMI, no JVD. No pulse deficits. Respiratory: Lungs have equal breath sounds bilaterally, clear to auscultation and percussion. No rales, rhonchi or wheezes noted. No increased work of breathing, no retractions or nasal flaring. Abdomen/GI: Soft, non-tender, with normal bowel sounds. No distension or tympany. No guarding or rebound. No evidence of tenderness throughout. Skin: Warm, dry with normal turgor. Normal color with no rashes, no lesions, and no evidence of cellulitis. MS/ Extremity: Pulses equal, no cyanosis. Neurovascular intact. Full, normal range of motion. Neuro: Awake and alert, GCS 15, oriented to person, place, time, and situation. Cranial nerves II-XII grossly intact. Motor strength 5/5 in all extremities. Sensory grossly intact. Cerebellar exam normal. Normal gait. Vital Signs: 08:16 BP 137 / 77; Pulse 76; Resp 14; Temp 97.6(TE); Pulse Ox 99% on R/A; Weight 102.06 kg; ss Height 5 ft. 6 in. (167.64 cm); Pain 7/10; 08:16 Body Mass Index 36.32 (102.06 kg, 167.64 cm) ss MDM: 08:13 Patient medically screened. ma2 09:16 Differential diagnosis: extremity fracture, contusion vs sprain. Data reviewed: vital ma2 signs, nurses notes. Counseling: I had a detailed discussion with the patient and/or guardian regarding: the historical points, exam findings, and any diagnostic results supporting the discharge/admit diagnosis, the presence of at least one elevated blood pressure reading (>120/80) during this emergency department visit, the need for outpatient follow up. Response to treatment: the patient's symptoms have markedly improved after treatment. 03/28 08:21 Order name: Hand Right 3 View XRAY ma2 Administered Medications: No medications were administered Disposition: 03/28/19 09:17 Discharged to Home. Impression: Pain in right hand. - Condition is Stable. - Discharge Instructions: Musculoskeletal Pain. - Prescriptions for Tylenol- Codeine #3 300-30 mg Oral Tablet - take 2 tablet by ORAL route every 6 hours As needed; 30 tablet. - Medication Reconciliation Form, Thank You Letter, Antibiotic Education, Prescription Opioid Use form. - Follow up: Private Physician; When: Tomorrow; Reason: Continuance of care. Signatures: Dispatcher [employer] EDMA Bessy Toro RN RN aa5 Elvia Blancas RN RN ss Srikanth Hernandez MD MD ma2 Corrections: (The following items were deleted from the chart) 10:04 09:17 03/28/2019 09:17 Discharged to Home. Impression: Pain in right hand. Condition is aa5 Stable. Forms are Medication Reconciliation Form, Thank You Letter, Antibiotic Education, Prescription Opioid Use. Follow up: Private Physician; When: Tomorrow; Reason: Continuance of care. ma2
--- NOTE | 2019-03-28 09:56 | RAD REPORT ---
EXAM DESCRIPTION: RAD - Hand Right 3 View - 03/28/2019 9:03 am CLINICAL HISTORY: Right hand pain status post injury FINDINGS: No fracture or dislocation is seen.
[2019-03-28 10:17] VITALS: BP 137/77; TEMP 97.6; O2SAT 99
== END 2019-03-28 10:04 | disposition home or self-care (01) ==
LOC: ER 08:00
DX: M79.641 Pain in right hand (principal); Z88.0 Allergy status to penicillin; Z88.1 Allergy status to other antibiotic agents; Z87.442 Personal history of urinary calculi
CPT/HCPCS: 99283

== ENCOUNTER 2020-09-22 07:31 | Emergency (ER) | payer SELFPAY ==
--- OUTSIDE RECORDS SUMMARY | 2020-09-22 07:34 | XMS REPORT | Clinical Summary ---
:1995 Author Organization [facility] Address [address] [place] [id number] Care Team Providers Name Role Phone Reji Pineda RN Primary Care Provider Unavailable Allergies Active Allergy Reactions Severity Noted Date Comments Penicillins Rash Low 11/01/2016 Medications No known medications Active Problems Problem Noted Date Hydronephrosis with obstructing calculus 11/02/2016 Pyelonephritis, acute 11/02/2016 Leukocytosis 11/01/2016 Sepsis 11/01/2016 Surgical History Surgery Date Site/Laterality Comments NEPHROSTOMY CYSTO STENT INSERTION 11/01/2016 Left Procedure: CYSTO, LEFT RETROGRADE, LEFT STENT INSER TION; Surgeon: Monica michael MD; Location: [facility]; Se rvice: Urology; Laterality: Left ; Medical devices from this surgery are in the Implants section. CYSTO, URETEROSCOPY 11/04/2016 Left Procedure: C YSTOSCOPY, LEFT URETEROSCOPY, LA SER LITHOTRIPSY, STONE MANIPULATION; S urgeon: Monica Alvarado MD; L ocation: [facility]; Service: Urology ; Laterality: Left; Medical devices from this surgery are in the Implants section. 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 Device Shelf Model / Identifier Expiration Serial / Date Lot Stent Uretl Universa 6fr 24cm Hydrph With Gw - [id number] [employer] gical N/A: [employer] 08/09/2019 [id number] / Implanted: 11/01/2016 at [facility] (Quantity not on file) Implants or N/A / Sets [id number] Stent Uretl Universa 6fr 24cm Hydrphlc With Gw - [id number] [employer]rol[employer] gical Left: [employer] 08/23/2019 [id number] / Implanted: Qty: 1 on 11/04/2016 by Monica Alvarado MD at [facility] Implants or N/A / Sets [id number] Results Not on fileafter 09/22/2019 Advance Directives For more information, please contact: [phone] Type Date Recorded Patient Attending Radiologist Explanati on Advance Directives, Living Will and 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
--- OUTSIDE RECORDS SUMMARY | 2020-09-22 07:35 | XMS REPORT | Continuity of Care Document ---
:1995 Author Organization [facility] t Address [address] [place] [address] Dr. Dumont. [address] [place] [address] Care Team Providers Name Role Phone Miriam JACKSON, Reji Primary Care Physician Unavailable Chani Sanchez Attending Clinician Payers Payer Name Policy Type Policy Number Effective Date Expiration Date S ource Problems Condition Condition Condition Status Onset Resolution Last Treating Co mments Source Name Details Category Date Date Treatment Clinician Date Hydronephr Hydronephr Disease Active tyler osis with osis with 11-02 Meth racheal obstructin obstructin 00:00: st g calculus g calculus 00 Pyelonephr Pyelonephr Disease Active tyler itis, itis, 11-02 Methodi acute acute 00:00: st 00 Leukocytos Leukocytos Disease Active H tyler is is - Methodi 00:00: st 00 Sepsis Sepsis Disease Active [place] 11-01 Methodi 00:00: st 00 Allergies, Adverse Reactions, Alerts Allergy Allergy Status Severity Reaction(s) Onset Inactive Treating Comm ents Source Name Type Date Date Clinician [place] DA Active [place] [facility] ins 11-03 [place] 00:00: [facility] 00 [facility] Penicill Propensi Active Rash [place] ins ty to 11-01 Methodi adverse 00:00: st reaction 00 s to drug Social History Social Habit Start Date Stop Date Quantity Comments Source Sex Assigned At [facility] ethodist Alcohol intake 2016-11-08 2016-11-08 Current [facility] thodist 00:00:00 00:00:00 non-drinker of alcohol (finding) Smoking Status Start Date Stop Date Source Never smoker [place] Methodis t Medications This patient has no known medications. Procedures This patient has no known procedures. Plan of Care Planned Activity Planned Date Details Comments Source Future Scheduled 2020-03-01 INFLUENZA VACCINE [place] [facility] 00:00:00 [code = INFLUENZA VACCINE] Future Scheduled 2014 Screening for [facility] thodist Test 00:00:00 malignant neoplasm of cervix (procedure) [code = 192126641] Future Scheduled 2009 COVID-19 VACCINE (1 [place] [employer] Test 00:00:00 of 2) [code = COVID-19 VACCINE (1 of 2)] Encounters Start End Encounter Admission Attending Care Care Encounter Source Date/Time Date/Time Type Type Clinicians Facility Department ID 2020-08-26 2020-08-[address] [facility] [id number] 00:00:00 00:00:00 Chani Bernabe SCRAPPER [id number] REGIONAL [id number] MATERNAL [id number] & CHILD 107 [facility] 2020-05-19 2020-05-[address] [facility] [id number] 15:02:27 16:06:58 Visit Chani Bernabe SCRAPPER [id number] [facility] [id number] MATERNAL [id number] & CHILD 107 [facility] Results Test Description Test Time Test Comments Results Result Sour e Comments - CT ABD PELVIS 2019-02-26 Patient Name: W/O CONT 12:01:00 SANDY MURRIETA Unit No: [id number] EXAMS: CPT CODE: [id number] CT ABD PELVIS W/O CONT 390[address] CT Abdomen and Pelvis without contrast. Location: [...] by: Nadir Schmitt MD CC: Leda Borjas ANESTHESIOLOGY TEACHER Dictated Date/Time: 02/26/2019 (1201) Technologist: Dada Lott CTDI: 12.49 DLP: 735.03 Trnscrpt: 02/26/2019 (1201) Tori.[email or web address] [facility] NAME: SANDY MURRIETA [address] [place] [address] Bl PHYS: Leda Domínguez, [place] [address] : 1995 AGE: 24 SEX: F LOC: B.ERS PHONE #: [phone] EXAM DATE: 02/26/2019 STATUS: REG ER FAX #: [phone] RAD #: D/C DT PAGE 1 Signed Report Patient Name: SANDY MURRIETA Unit No: [id number] EXAMS: CPT CODE: [id number] CT ABD PELVIS W/O CONT 80056 <Continued> Orig Print D/T: S: 02/26/2019 (1204) [facility] Seda NAME: SANDY MURRIETA [address] [place] [address] Blvd PHYS: SHELL BorjasLeda Emily Stack, [place] [address] : 1995 AGE: 24 SEX: F LOC: DEANA PHONE #: [phone] EXAM DATE: 02/26/2019 STATUS: REG ER FAX #: [phone] RAD #: D/C DT PAGE 2 Signed Report HEPATIC FUNCTION PANEL 2019-02-26 11:46:00 Test Item Value Reference Range Interpretation Comme nts TOTAL PROTEIN (test code = PROT) 8.2 G/DL 6.4-8.2 N ALBUMIN (test code = ALB) 3.9 G/DL 3.4-5.0 N BILIRUBIN TOTAL (test code = BILT) 0.58 MG/DL 0.00-1.00 N BILIRUBIN DIRECT (test code = BILD) 0.16 MG/DL 0.00-0.30 N BILIRUBIN INDIRECT (test code = BILIND) 0.42 MG/DL 0.2-1.3 N SGOT/AST (test code = AST) 24 Unit/L 15-37 N SGPT/ALT (test code = ALT) 33 Unit/L 12-78 N ALKALINE PHOSPHATASE TOTAL (test code = ALKP) 84 Unit/L 45-117 N INDEX HEMOLYSIS (test code = HEMINDEX) 1 NORMAL <10 MG Index/DL 1 N ORMAL INDEX ICTERIC (test code = ICTINDEX) 1 NORMAL <2 MG Index/DL 1 NORM AL INDEX LIPEMIA (test code = LIPINDEX) 1 NORMAL <50 MG Index/DL 1 NOR MAL [id number] 11:46:00 Test Item Value Reference Range Interpretation Comments LIPASE (test code = LIP) 85 Unit/L 114-286 L HEPATIC FUNCTION [id number] 11:43:00 Test Item Value Reference Range Interpretation Comments TOTAL PROTEIN (test code G/DL 6.4-8.2 = PROT) ALBUMIN (test code = ALB) 3.9 G/DL 3.4-5.0 N BILIRUBIN TOTAL (test MG/DL 0.00-1.00 code = BILT) BILIRUBIN DIRECT (test 0.16 MG/DL 0.00-0.30 N code = BILD) BILIRUBIN INDIRECT (test MG/DL 0.2-1.3 code = BILIND) SGOT/AST (test code = 24 Unit/L 15-37 N AST) SGPT/ALT (test code = 33 Unit/L 12-78 N ALT) ALKALINE PHOSPHATASE Unit/L 45-117 TOTAL (test code = ALKP) INDEX HEMOLYSIS (test 1 NORMAL <10 MG 1 NORMAL code = HEMINDEX) Index/DL INDEX ICTERIC (test code 1 NORMAL <2 MG 1 NORMAL = ICTINDEX) Index/DL INDEX LIPEMIA (test code 1 NORMAL <50 MG 1 NORMAL = LIPINDEX) Index/DL [id number] 11:43:00 Test Item Value Reference Range Interpretation Comments LIPASE (test code = LIP) 85 Unit/L 114-286 L UA RFLX MICR CULT IF [id number] 11:34:00 Test Item Value Reference Range Interpretation Comments UA COLOR (test code = YELLOW DESCRIPT YELLOW COLU) UA APPEARANCE (test code CLOUDY DESCRIPT CLEAR A = APPU) UA GLUCOSE DIPSTICK (test NEGATIVE (0) mg/dL (NEG) 0 code = DGLUU) UA BILIRUBIN DIPSTICK NEGATIVE (0) mg/dL (NEG) 0 (test code = BILU) UA KETONE DIPSTICK (test 0 (NEG) mg/dL (NEG) 0 code = KETU) UA SPECIFIC GRAVITY (test 1.023 SG 1.001-1.035 code = SGU) UA BLOOD DIPSTICK (test 0.20-0.50 (2+) mg/DL (NEG) 0 A code = YASMANI) UA PH DIPSTICK (test code 5.0 pH UNITS 4.6-8.0 = RAKESH) UA PROTEIN DIPSTICK (test NEGATIVE (0) mg/dL <30 (1+) code = PROU) UA UROBILINIOGEN DIPSTICK 4 mg/dL <2.0 (1+) A (test code = URO) UA NITRITE DIPSTICK (test POSITIVE SCREEN NEG A code = BRI) UA LEUKOCYTE ESTERASE 500 (3+) Leuk/mcL (NEG) 0 A DIPSTICK (test code = LEUU) UA COMMENT (test code = CLEAN CATCH SPEC SpecComment COMU) Notes UA WBC (test code = WBCU) 40-50 #WBC/HPF 0-3 A UA RBC (test code = RBCU) 10-20 #RBC/HPF 0-3 A UA BACTERIA (test code = MANY /HPF NONE-FEW A BACU) UA SQUAMOUS CELLS (test MANY >20 /HPF NONE-SQepi code = SQU) UA MUCUS (test code = RARE /LPF NONE MUCU) UA CULTURE NEEDED? (test Crit met CULT-OK Cult byWBC code = UACULT) Criteria Indication for culture: abdominal painUR HCG [id number] 11:34:00 Test Item Value Reference Range Interpretation Comments UR HCG QUAL (test NEGATIVE NEG Very dilut e urines with a code = HCGQLU) low specific gravity may notcontain repr esentative levels of hCG. Indication for culture: abdominal painUA RFLX MICR CULT IF INDICATED 2019-02-26 11:32:00 Test Item Value Reference Range Interpretation Comments UA COLOR (test code = COLU) DESCRIPT YELLOW UA APPEARANCE (test code = APPU) DESCRIPT CLEAR UA GLUCOSE DIPSTICK (test code = mg/dL (NEG) 0 DGLUU) UA BILIRUBIN DIPSTICK (test code = mg/dL (NEG) 0 BILU) UA KETONE DIPSTICK (test code = mg/dL (NEG) 0 KETU) UA SPECIFIC GRAVITY (test code = SG 1.001-1.035 SGU) UA BLOOD DIPSTICK (test code = YASMANI) mg/DL (NEG) 0 UA PH DIPSTICK (test code = RAKESH) pH UNITS 4.6-8.0 UA PROTEIN DIPSTICK (test code = mg/dL <30 (1+) PROU) UA UROBILINIOGEN DIPSTICK (test mg/dL <2.0 (1+) code = URO) UA NITRITE DIPSTICK (test code = SCREEN NEG BRI) UA LEUKOCYTE ESTERASE DIPSTICK Leuk/mcL (NEG) 0 (test code = LEUU) UA RBC (test code = RBCU) #RBC/HPF 0-3 Indication for culture: abdominal painUR HCG [id number] 11:32:00 Test Item Value Reference Range Interpretation Comments UR HCG QUAL (test NEGATIVE NEG Very dilut e urines with a code = HCGQLU) low specific gravity may notcontain repr esentative levels of hCG. Indication for culture: abdominal painCBC W/O [id number] 11:29:00 Test Item Value Reference Range Interpretation Comments WHITE BLOOD CELL (test code = WBC) 6.9 K/mm3 4.1-12.1 N RED BLOOD CELL (test code = RBC) 5.11 M/mm3 3.8-5.5 N HEMOGLOBIN (test code = HGB) 13.9 G/DL 10.6-15.8 N HEMATOCRIT (test code = HCT) 45.2 % 31.8-47.4 N MEAN CELL VOLUME (test code = MCV) 88.5 fL 80.1-101.1 N MEAN CELL HGB (test code = MCH) 27.2 pg 25.3-35.3 N MEAN CELL HGB CONCETRATION (test 30.8 G/DL 32.7-35.1 L code = MCHC) RED CELL DISTRIBUTION WIDTH (test 13.4 % 12.2-16.4 N code = RDW) PLATELET COUNT (test code = PLT) 207 K/mm3 155-337 N MEAN PLATELET VOLUME (test code = 11.0 fL 6.8-11.2 N MPV) CHEMISTRY 7 [id number] 11:20:00 Test Item Value Reference Range Interpretation Comments IONIZED CALCIUM (test code = CAIABG) mmol/L 1.13-1.32 ISTAT-TCO2 VENOUS (test code = MMOL/L 21-32 N TCO2VP) ISTAT-SODIUM (test code = NAP) MMOL/L 135-148 ISTAT-POTASSIUM (test code = KP) MMOL/L 3.5-5.9 ISTAT-CHLORIDE (test code = CLP) MMOL/L 98-106 ISTAT-ANION GAP (test code = GAPP) MEQ/L 10-20 ISTAT-GLUCOSE (test code = GLUP) MG/DL 70-119 N ISTAT-BUN (test code = BUNP) MG/DL 8-28 N BEDSIDE CREATININE (test code = MG/DL 0.6-1.2 N CREATBED) GLOMERULAR FILTRATION RATE POC (test 121 71-165 N code = GFRBED) CHEMISTRY 7 [id number] 11:20:00 Test Item Value Reference Range Interpretation Comments IONIZED CALCIUM (test 1.21 mmol/L 1.13-1.32 N code = CAIABG) ISTAT-TCO2 VENOUS (test 26 MMOL/L 21-32 N code = TCO2VP) ISTAT-SAMPLE SOURCE UNKNOWN SPEC TYPE Specimen (test code = SRCIST) Descript ISTAT-SODIUM (test code 139 MMOL/L 135-148 N = NAP) ISTAT-POTASSIUM (test 3.6 MMOL/L 3.5-5.9 N code = KP) ISTAT-CHLORIDE (test 100 MMOL/L 98-106 N code = CLP) ISTAT-ANION GAP (test 18.0 MEQ/L 10-20 N code = GAPP) ISTAT-GLUCOSE (test code 92 MG/DL 70-119 N = GLUP) ISTAT-BUN (test code = 9 MG/DL 8-28 N BUNP) BEDSIDE CREATININE (test 0.6 MG/DL 0.6-1.2 N code = CREATBED) GLOMERULAR FILTRATION 121 71-165 N RATE POC (test code = GFRBED) - CT ABD PELVIS [id number] 01:36:00 Patient Name: SANDY MURRIETA Unit No: [id number] EXAMS: CPT CODE: [id number] CT ABD PELVIS W/CONT 54090 CT ABDOMEN AND PELVIS WITH IV CONTRAST [...] and ovaries are grossly unremarkable. No free air, free fluid or evidence of a bowel obstruction. Stomach is collapsed. The appendix is normal. No bowel wall thickening. The aorta is normal in caliber. No abdominalor pelvic adenopathy. The bones are unremarkable. IMPRESSION: Normal appendix. No inflammatory changes in the abdomen or pelvis. at 0136 Reported and signed by: Juju Soni MD CC: Tess Zheng ANESTHESIOLOGY TEACHER Dictated Date/Time: 11/04/2018 (013) Technologist: Carlos Antonio - Humza CTDI: 12.49 DLP: 741.46 Trnscrpt: 11/04/2018 (013) [email or web address] [facility] NAME: SANJEEV MURRIETA[address] PHYS: Tess Coronado [place] [address] : 1995 AGE: 23 SEX: F LOC: B.ERS PHONE #: [phone] EXAM DATE: 11/04/2018 STATUS: REG ER FAX #: [phone] RAD #: D/C DT PAGE 1 Signed Report Patient Name: SANDY MURRIETA Unit No: [id number] EXAMS: CPT CODE: [id number] CT ABD PELVIS W/CONT 99600 <Continued> Orig Print D/T: S: 11/04/2018 (0140) [facility] NAME: GLENNY[address] PHYS: MAIAGABRIELLA Abhishek ZhengTess [place] [address] : 1995 AGE: 23 SEX: F LOC: B.ERS PHONE #: [phone] EXAM DATE: 11/04/2018 STATUS: REG ER FAX #: [phone] RAD #: D/C DT PAGE 2 Signed ReportURINALYSIS [id number] 01:13:00 Test Item Value Reference Range Interpretation Comments UA COLOR (test code = OLI DESCRIPT YELLOW A COLU) UA APPEARANCE (test code HAZY DESCRIPT CLEAR = APPU) UA GLUCOSE DIPSTICK (test NEGATIVE (0) mg/dL (NEG) 0 code = DGLUU) UA BILIRUBIN DIPSTICK NEGATIVE (0) mg/dL (NEG) 0 (test code = BILU) UA KETONE DIPSTICK (test 1+ (5-15 mg/dL) (NEG) 0 A code = KETU) mg/dL UA SPECIFIC GRAVITY (test 1.031 SG 1.001-1.035 code = SGU) UA BLOOD DIPSTICK (test 3+ mg/DL (NEG) 0 A code = YASMANI) UA PH DIPSTICK (test code 5.0 pH UNITS 4.6-8.0 = RAKESH) UA PROTEIN DIPSTICK (test 30 (1+) mg/dL <30 (1+) A code = PROU) UA UROBILINIOGEN DIPSTICK 2 mg/Dl <2.0 (1+) A (test code = URO) UA NITRITE DIPSTICK (test POSITIVE SCREEN NEG A code = BRI) UA LEUKOCYTE ESTERASE 25(TR) Leuk/mcL (NEG) 0 A DIPSTICK (test code = LEUU) UA WBC (test code = WBCU) 10-20 #WBC/HPF 0-3 A UA RBC (test code = RBCU) 5-10 #RBC/HPF 0-3 A UA BACTERIA (test code = MANY /HPF NONE-FEW A BACU) UA SQUAMOUS CELLS (test FEW >2 /HPF NONE-SQepi code = SQU) UA MUCUS (test code = MOD /LPF NONE A MUCU) UR HCG [id number] 01:13:00 Test Item Value Reference Range Interpretation Comments UR HCG QUAL (test NEGATIVE NEG Very dilut e urines with a code = HCGQLU) low specific gravity may notcontain repr esentative levels of hCG. URINALYSIS [id number] 01:10:00 Test Item Value Reference Range Interpretation Comments UA COLOR (test code = COLU) DESCRIPT YELLOW UA APPEARANCE (test code = APPU) DESCRIPT CLEAR UA GLUCOSE DIPSTICK (test code = mg/dL (NEG) 0 DGLUU) UA BILIRUBIN DIPSTICK (test code = mg/dL (NEG) 0 BILU) UA KETONE DIPSTICK (test code = mg/dL (NEG) 0 KETU) UA SPECIFIC GRAVITY (test code = SG 1.001-1.035 SGU) UA BLOOD DIPSTICK (test code = YASMANI) mg/DL (NEG) 0 UA PH DIPSTICK (test code = RAKESH) pH UNITS 4.6-8.0 UA PROTEIN DIPSTICK (test code = mg/dL <30 (1+) PROU) UA UROBILINIOGEN DIPSTICK (test mg/Dl <2.0 (1+) code = URO) UA NITRITE DIPSTICK (test code = SCREEN NEG BRI) UA LEUKOCYTE ESTERASE DIPSTICK Leuk/mcL (NEG) 0 (test code = LEUU) UA RBC (test code = RBCU) #RBC/HPF 0-3 UR HCG [id number] 01:10:00 Test Item Value Reference Range Interpretation Comments UR HCG QUAL (test NEGATIVE NEG Very dilut e urines with a code = HCGQLU) low specific gravity may notcontain repr esentative levels of hCG. PROCALCITONIN (PCT)2018-11-03 23:19:00 Test Item Value Reference Range Interpretation Comments PROCALCITONIN (PCT) < 0.05 NG/ML 0.00-0.10 N PROCALCI TONIN (PCT) (test code = PROCAL) NORMAL RANGE (ADULT) <0.05 NG/ML-nor mal <0.50 NG/ML-low risk of severe sepsis a nd/or septic shock >2 .00 NG/ML-high risk of severe sepsis a nd/or septic shcock Concentrations of <0.5 ng/mL do not ex clude an infection.Local ized infections (wit hout systemic signs) or a systemicinfecti on in its initial sta ges (<6 hours) can be associatedwith such low concentrations. It is recommended to retestPCT withi n 6-24 hours if concen trations <2 NG/ML. Specimen comments: SEPSIS WORKUPBASIC METABOLIC [id number] 23:09:00 Test Item Value Reference Range Interpretation Comments SODIUM (test code = 136.0 mmol/L 133-144 N NA) POTASSIUM (test code 3.6 mmol/L 3.5-5.1 N = K) CHLORIDE (test code 101 mmol/L 95-105 N = CL) CARBON DIOXIDE (test 29 mmol/L 21-32 N code = CO2) ANION GAP (test code 6.0 GAP calc 4.0-15.0 N = GAP) GLUCOSE (test code = 106 MG/DL 70-110 N GLU) BLOOD UREA NITROGEN 12 MG/DL 7-18 N (test code = BUN) CREATININE (test 0.74 MG/DL 0.55-1.30 N Results may be code = CREAT) depressed if patient is takingN-Acetylc yste ine (NAC) and Metamizole (Dipyrone). CALCIUM (test code = 9.0 MG/DL 8.5-10.1 N CA) INDEX HEMOLYSIS 1 NORMAL <10 MG 1 NORMAL (test code = Index/DL HEMINDEX) INDEX ICTERIC (test 1 NORMAL <2 MG 1 NORMAL code = ICTINDEX) Index/DL INDEX LIPEMIA (test 1 NORMAL <50 MG 1 NORMAL code = LIPINDEX) Index/DL Specimen comments: SEPSIS WORKUPHEPATIC FUNCTION [id number] 23:09:00 Test Item Value Reference Range Interpretation Comments TOTAL PROTEIN (test code = PROT) 8.6 G/DL 6.4-8.2 H ALBUMIN (test code = ALB) 4.3 G/DL 3.4-5.0 N BILIRUBIN TOTAL (test code = BILT) 0.54 MG/DL 0.00-1.00 N BILIRUBIN DIRECT (test code = 0.13 MG/DL 0.00-0.30 N BILD) BILIRUBIN INDIRECT (test code = 0.41 MG/DL 0.2-1.3 N BILIND) SGOT/AST (test code = AST) 18 Unit/L 15-37 N SGPT/ALT (test code = ALT) 18 Unit/L 12-78 N ALKALINE PHOSPHATASE TOTAL (test 82 Unit/L 45-117 N code = ALKP) Specimen comments: SEPSIS [id number] 23:09:00 Test Item Value Reference Range Interpretation Comments LIPASE (test code = LIP) 80 Unit/L 114-286 L Specimen comments: SEPSIS [id number] 23:09:00 Test Item Value Reference Range Interpretation Comments TROPONIN-I < 0.015 NG/ML 0.000-0.045 N An elevated tr oponin value (test code = alone is not linares fficient TROPI) todiagnose a my ocardial infarction. Rat her, the patient'sclinic al presentation (h istory, physical exam) and ECGshould be used in conj unction with troponin in the diagnostic evaluation of s uspected myocardial infa rction. Aserial samplin g protocol is recommended to facilitate theidentificati on of temporal change s in troponin levelscharacter istic of [place]. Specimen comments: SEPSIS WORKUP- US ABDOMEN [id number] 23:06:00 Patient Name: SANDY MURRIETA Unit No: [id number] EXAMS: CPT CODE: [id number] US ABDOMEN [facility] [address] Site ID: [id number] Abdominal ultrasound, limited (Right upper quadrant) HISTORY: Epigastric pain and vomiting FINDINGS: The gallbladder is normally distended, with no evidence of gallbladder wall thickening, intraluminal s tones or pericholecystic fluid. Sonographic Monsalve sign is [...] Krystian Fernández MD Technologist: Mulu Fernández Trnscrbd D/ (9275) [id number] Probe: Orig Print D/T: S: 11/03/2018 (1376) Probe: [facility] NAME: SANDY MURRIETA [address] [place] [address] PHYS: Krystian Ott MD, [place] [address] : 1995 AGE: 23 SEX: F LOC: DEANA PHONE #: [phone] EXAM DATE: 11/03/2018 STATUS: REG ER FAX #: [phone] RAD NO: Page 1 Signed ReportCBC W/O [id number] 22:50:00 Test Item Value Reference Range Interpretation Comments WHITE BLOOD CELL (test code = WBC) 7.0 K/mm3 4.1-12.1 N RED BLOOD CELL (test code = RBC) 5.08 M/mm3 3.8-5.5 N HEMOGLOBIN (test code = HGB) 14.4 G/DL 10.6-15.8 N HEMATOCRIT (test code = HCT) 45.5 % 31.8-47.4 N MEAN CELL VOLUME (test code = MCV) 89.6 fL 80.1-101.1 N MEAN CELL HGB (test code = MCH) 28.3 pg 25.3-35.3 N MEAN CELL HGB CONCETRATION (test 31.6 G/DL 32.7-35.1 L code = MCHC) RED CELL DISTRIBUTION WIDTH (test 13.5 % 12.2-16.4 N code = RDW) PLATELET COUNT (test code = PLT) 200 K/mm3 155-337 N MEAN PLATELET VOLUME (test code = 10.6 fL 6.8-11.2 N MPV) LACTIC ACID [id number] 22:41:00 Test Item Value Reference Range Interpretation Comments LACTIC ACID POC (test code = 0.67 MMOL/L i 0.40-2.00 N LACTP) - XR CHEST 1 [id number] 21:15:00 FAX: Tess Zheng NP [phone] [place]: E St: PRE Patient Name: SANDY MURRIETA Unit No: [id number] EXAMS: CPT CODE: [id number] XR CHEST 1 V 76199 EXAMINATION: - XR CHEST 1 V. LOCATION: R16. HISTORY: Code sepsis, abdominal pain, nausea, vomiting. COMPARISON: None. FINDINGS: Examination is limited due to portable technique, patient body habitus and low lung volumes. Cardiac silhouette/Mediastinal contour: Within normal limits. Lungs: No focal consolidation. No large pleural effusion. Osseous Structures: No acute osseous abnormalities. IMPRESSION: Low lung volumes, no focal consolidation. ElectronicallySigned by Kenia Lucero MD on 11/03/2018 at 2115 Reported and signed by: Kenia Lucero MD CC: Tess Zheng NP Dictated Date/Time: 11/03/2018 (2114)Technologist: Danica Ayoub - Agency Transcribed Date/Time: 11/03/2018 (2114) By: [email or web address] Orig Print D/T: S: 11/03/2018 (2117) [facility] NAME: SANDY MURRIETA [address] [place] [address] PHYS: Tess Coronado NP, [place] [address] : 1995 AGE: 23 SEX: F LOC: B.ERS PHONE #: [phone] EXAM DATE: 11/03/2018STATUS: PRE ER FAX #: [phone] RAD NO: DC Dt: PAGE 1 Signed Report
[2020-09-22 10:35] LABS: Absolute Lymphocytes (CBC) 0.8 K/uL (0.7-4.9); Basophils % 0.5 % (0-1.3); Hematocrit 40.7 % (36.0-45.0); Lymphocytes % 7.6 % (15.3-44.8); MPV 9.3 fL (7.6-11.3); RBC Red Blood Cell Count 4.72 M/uL (3.86-4.86)
[2020-09-22] MEDS ORDERED: ONDANSETRON 4 MG/2 ML VIAL ONE (10:45)
[2020-09-22] MEDS ORDERED: FAMOTIDINE 20 MG/2 ML VIAL IV ONE (10:45)
[2020-09-22] MEDS ORDERED: KETOROLAC 30 MG/ML INJ ONE (10:45)
[2020-09-22] MEDS ORDERED: NA CHLORIDE 0.9% 1,000 ML ONE (10:46)
[2020-09-22 10:50] LABS: ALT/SGPT 56 U/L (12-78); AST/SGOT 38 U/L (15-37); Alkaline Phosphatase 91 U/L (45-117); BUN Blood Urea Nitrogen 11 mg/dL (7-18); Bicarbonate 28 mmol/L (21-32); Bilirubin Direct < 0.1 mg/dL (0-0.2); Bilirubin Total 0.3 mg/dL (0.2-1.0); Glucose Level 108 mg/dL (74-106); Lipase 113 U/L (73-393); Potassium 4.3 mmol/L (3.5-5.1); Protein, Total 7.9 g/dL (6.4-8.2); Sodium Level 140 mmol/L (136-145)
[2020-09-22 11:11] LABS: Blood Morphology Comment NOT SEEN (NOT SEEN); Platelet Estimate ADEQ
--- NOTE | 2020-09-22 11:46 | EDPHYS ---
Physician Documentation [facility] [place], [place] Name: Gloria Ibarra Age: 25 yrs Sex: Female : 1995 Arrival Date: 09/22/2020 Time: 07:35 Bed 24 Private MD: ED Physician Daniel Naik HPI: 09/22 10:15 This 25 yrs old Female presents to ER via Ambulatory with complaints of cp Abdominal Pain, Vomiting. 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 - Social history:: Smoking status: Patient denies any tobacco usage or history of. ROS: 10:20 Constitutional: Negative for body aches, chills, fever, poor PO intake. cp 10:20 Eyes: Negative for injury, pain, redness, and discharge. cp 10:20 Cardiovascular: Negative for chest pain, palpitations. 10:20 Respiratory: Negative for cough, shortness of breath, wheezing. 10:20 Abdomen/GI: Positive for abdominal pain, nausea, Negative for diarrhea, constipation, active vomiting. 10:20 Back: Positive for radiated pain. 10:20 Neuro: Negative for altered mental status, headache, numbness, syncope, weakness. 10:20 All other systems are negative. Exam: 10:25 Constitutional: The patient appears in no acute distress, alert, awake, non-toxic, well cp developed, well nourished, obese. 10:25 Head/Face: Normocephalic, atraumatic. cp 10:25 Eyes: Periorbital structures: appear normal, Conjunctiva: normal, no exudate, no injection, Sclera: no appreciated abnormality, Lids and lashes: appear normal, bilaterally. 10:25 ENT: External ear(s): are unremarkable, Nose: is normal, Mouth: is normal, Posterior pharynx: Airway: no evidence of obstruction, patent. 10:25 Chest/axilla: Inspection: normal, Palpation: is normal, no crepitus, no tenderness. 10:25 Cardiovascular: Rate: normal, Rhythm: regular. 10:25 Respiratory: the patient does not display signs of respiratory distress, Respirations: normal, no use of accessory muscles, no retractions, labored breathing, is not present, Breath sounds: are clear throughout, no decreased breath sounds, no stridor, no wheezing. 10:25 Abdomen/GI: Inspection: abdomen appears normal, Bowel sounds: active, all quadrants, Palpation: soft, in all quadrants, moderate abdominal tenderness, in the epigastric area and right upper quadrant, rebound tenderness, is not appreciated, involuntary guarding, is not appreciated. 10:25 Back: CVA tenderness, is absent. Vital Signs: 08:44 BP 136 / 84; Pulse 85; Resp 16; Temp 98.7; Pulse Ox 99% on R/A; Weight 102.06 kg; iw Height 5 ft. 6 in. (167.64 cm); Pain 10; 08:44 Body Mass Index 36.32 (102.06 kg, 167.64 cm) iw MDM: 10:02 Patient medically screened. cp 11:45 Data reviewed: vital signs, nurses notes, lab test result(s), radiologic studies, cp ultrasound, I have discussed the patient's presentation/case with the attending Emergency Department Physician; and as a result, I will discharge patient. 11:45 Counseling: I had a detailed discussion with the patient and/or guardian regarding: the cp historical points, exam findings, and any diagnostic results supporting the discharge/admit diagnosis, lab results, radiology results, the need for outpatient follow up, for definitive care, a general surgeon, to return to the emergency department if symptoms worsen or persist or if there are any questions or concerns that arise at home. Response to treatment: the patient's symptoms have markedly improved after treatment. 11:49 ED course: Review of [place] prescription monitor website negative for any current cp results regarding prescribed controlled meds. 09/22 10:10 Order name: Basic Metabolic Panel 09/22 10:10 Order name: CBC with Diff cp 09/22 10:10 Order name: Hepatic Function cp 09/22 10:10 Order name: Lipase; Complete Time: 11: cp 09/22 11:03 Interpretation: Reviewed. 09/22 10:11 Order name: Basic Metabolic Panel; Complete Time: 11: EDMS 02/22 11:02 Interpretation: Normal except: CL 108; GLUC 108; GFR 87. cp 09/22 10:11 Order name: CBC with Automated Diff; Complete Time: 11:35 EDMS 09/22 11:03 Interpretation: Normal except: DESTINEY% 86.7; LYM% 7.6; NEUT A 8.8. cp 09/22 10:11 Order name: Liver (Hepatic) Function; Complete Time: 11:02 EDMS 09/22 11:03 Interpretation: Normal except: AST 38; GLOB 3.9; A/G 1.0. cp 09/22 11:04 Order name: US Abdomen Limited: RUQ/epigastric area cp 09/22 11:10 Order name: Manual Differential; Complete Time: 11:35 EDMS 09/22 11:36 Interpretation: Normal except: SEGS 89; LYM 4. cp 09/22 10:10 Order name: IV Saline Lock; Complete Time: 10:23 cp 09/22 10:10 Order name: Labs collected and sent; Complete Time: 10:23 cp 09/22 11:37 Order name: PO challenge; Complete Time: 12:05 cp Administered Medications: 10:11 CANCELLED (Physician Discretion): morphine 2 mg IVP once; (PAIN>8) RASS on ADMN: cp Combtv4, Very Agttd3, Agttd2, Rstlss1, AlertClm0, Drwsy-1, LtSdtn-2, ModSdtn-3, DpSdtn-4, UnArsble-5 x2 10:36 Drug: TORadol - Ketorolac 15 mg Route: IVP; Site: left antecubital; ll1 10:37 Drug: Zofran (Ondansetron) 4 mg Route: IVP; Site: left antecubital; ll1 10:37 Drug: Pepcid 20 mg Route: IVP; Site: left antecubital; ll1 10:37 Drug: NS 0.9% 1000 ml Route: IV; Rate: 1 bolus; Site: left antecubital; ll1 12:06 Drug: GI Cocktail without - (Maalox Suspension 30 ml, Lidocaine Liquid 2 % 15 ll1 ml) Route: PO; Disposition: 17:11 Co-signature as Attending Physician, Daniel Naik MD. rn Disposition: 09/22/20 11:46 Discharged to Home. Impression: Cholelithiasis. - Condition is Stable. - Discharge Instructions: Biliary Colic, Adult, Cholelithiasis. - Prescriptions for Bentyl 20 mg Oral Tablet - take 2 tablet by ORAL route every 6 hours As needed; 40 tablet. Tramadol 50 mg Oral Tablet - take 1 tablet by ORAL route every 8 hours as needed; 12 tablet. promethazine 25 mg Oral Tablet - take 1 tablet by ORAL route every 6 hours As needed; 20 tablet. - Medication Reconciliation Form, Thank You Letter, Antibiotic Education, Prescription Opioid Use, Work release form form. - Follow up: Win Lima MD; When: 1 - 2 days; Reason: Recheck today's complaints. - Problem is new. - Symptoms have improved. Signatures: Dispatcher [employer] EDRomelia Ku RN RN iw Daniel Naik MD MD rn Page, Corey, PA PA Mary Vieyra RN RN vg1 Hunter Olvera RN RN ll1 Corrections: (The following items were deleted from the chart) 10:11 10:10 morphine 2 mg IVP once; (PAIN>8) RASS on ADMN: Combtv4, Very Agttd3, Agttd2, cp Rstlss1, AlertClm0, Drwsy-1, LtSdtn-2, ModSdtn-3, DpSdtn-4, UnArsble-5 x2 ordered. cp 12:19 11:46 09/22/2020 11:46 Discharged to Home. Impression: Cholelithiasis. Condition is vg1 Stable. Forms are Medication Reconciliation Form, Thank You Letter, Antibiotic Education, Prescription Opioid Use. Follow up: Win Lima; When: 1 - 2 days; Reason: Recheck today's complaints. Problem is new. Symptoms have improved. cp
--- NOTE | 2020-09-22 11:46 | ER ---
Nurse's Notes [facility] Name: Gloria Ibarra Age: 25 yrs Sex: Female : 1995 Arrival Date: 09/22/2020 Time: 07:35 Bed 24 Private MD: Diagnosis: Cholelithiasis Presentation: 09/22 08:44 Chief complaint: Patient states: has RUQ pain that radiates to back, [place] [place], was told she has gallstones , was told if it got worse to go back to ER. Coronavirus screen: At this time, the client does not indicate any symptoms associated with coronavirus-19. Ebola Screen: Patient negative for fever greater than or equal to 101.5 degrees Fahrenheit, and additional compatible Ebola Virus Disease symptoms Patient denies exposure to infectious person. Patient denies travel to an Ebola-affected area in the 21 days before illness onset. No symptoms or risks identified at this time. Initial Sepsis Screen: Does the patient meet any 2 criteria? No. Patient's initial sepsis screen is negative. Does the patient have a suspected source of infection? No. Patient's initial sepsis screen is negative. Risk Assessment: Do you want to hurt yourself or someone else? Patient reports no desire to harm self or others. Onset of symptoms was September 21, 2020. 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 - Social history:: Smoking status: Patient denies any tobacco usage or history of. Screenin:10 Abuse screen: Denies threats or abuse. Nutritional screening: No deficits noted. ll1 Tuberculosis screening: No symptoms or risk factors identified. Fall Risk IV access (20 points). Total [place] Fall Scale indicates No Risk (0-24 pts). Assessment: 10:15 General: Appears uncomfortable, Behavior is calm, cooperative, appropriate for age. ll1 Pain: Complains of pain in RUQ Pain currently is 10 out of 10 on a pain scale. Quality of pain is described as aching. Neuro: No deficits noted. Cardiovascular: No deficits noted. GI: Abdomen is round Bowel sounds present X 4 quads. Abd is soft X 4 quads Abdomen is tender to palpation in right upper quadrant Reports upper abdominal pain, nausea, vomiting. 11:15 Reassessment: No changes from previously documented assessment. Patient and/or family ll1 updated on plan of care and expected duration. Pain level reassessed. Patient is alert, oriented x 3, equal unlabored respirations, skin warm/dry/pink. Patient states feeling better. Vital Signs: 08:44 BP 136 / 84; Pulse 85; Resp 16; Temp 98.7; Pulse Ox 99% on R/A; Weight 102.06 kg; iw Height 5 ft. 6 in. (167.64 cm); Pain 10/10; 08:44 Body Mass Index 36.32 (102.06 kg, 167.64 cm) iw ED Course: 07:35 Patient arrived in ED. ds1 08:45 Triage completed. iw 08:46 Arm band placed on. iw 10:00 Edson Payne PA is PHCP. cp 10:00 Daniel Naik MD is Attending Physician. cp 10:01 Hunter Olvera, RENETTA is Primary Nurse. ll1 10:02 Arm band placed on Patient placed in an exam room, on a stretcher. ll1 10:02 Patient has correct armband on for positive identification. Bed in low position. Call ll1 light in reach. Side rails up X 1. Cardiac monitoring not applicable on this patient. 10:15 Inserted saline lock: 20 gauge in left antecubital area, using aseptic technique. Blood ll1 collected. 11:41 US Abdomen Limited: RUQ/epigastric area In Process Unspecified. EDMS 11:45 Win Lima MD is Referral Physician. cp 12:19 No provider procedures requiring assistance completed. IV discontinued, intact, vg1 bleeding controlled, No redness/swelling at site. Pressure dressing applied. Administered Medications: 10:11 CANCELLED (Physician Discretion): morphine 2 mg IVP once; (PAIN>8) RASS on ADMN: cp Combtv4, Very Agttd3, Agttd2, Rstlss1, AlertClm0, Drwsy-1, LtSdtn-2, ModSdtn-3, DpSdtn-4, UnArsble-5 x2 10:36 Drug: TORadol - Ketorolac 15 mg Route: IVP; Site: left antecubital; ll1 10:37 Drug: Zofran (Ondansetron) 4 mg Route: IVP; Site: left antecubital; ll1 10:37 Drug: Pepcid 20 mg Route: IVP; Site: left antecubital; ll1 10:37 Drug: NS 0.9% 1000 ml Route: IV; Rate: 1 bolus; Site: left antecubital; ll1 12:06 Drug: GI Cocktail without - (Maalox Suspension 30 ml, Lidocaine Liquid 2 % 15 ll1 ml) Route: PO; Outcome: 11:46 Discharge ordered by MD. cp 12:19 Discharged to home ambulatory. vg1 12:19 Condition: stable 12:19 Discharge instructions given to patient, Instructed on discharge instructions, follow up and referral plans. medication usage, Demonstrated understanding of instructions, follow-up care, medications, Prescriptions given X 3. 12:19 Patient left the ED. vg1 Signatures: Dispatcher [employer] EDGA Traci Elizabeth ds1 Romelia Olivas RN Edson Chambers PA PA cp Garcia, Victoria RN RENETTA vg1 Hunter Olvera RN RN ll1
[2020-09-22] MEDS ORDERED: LIDOCAINE VISCOUS 2% SOLN 15 ML UDC ONE (12:11)
[2020-09-22] MEDS ORDERED: MAGNES/ALUMIN/SIMET 30ML UCUP ONE (12:11)
--- NOTE | 2020-09-22 12:11 | RAD REPORT ---
EXAM DESCRIPTION: US - Abdomen Exam Limited - 09/22/2020 11:41 am CLINICAL HISTORY: ABD PAIN COMPARISON: No comparisons FINDINGS: The gallbladder demonstrates numerous shadowing gallstones. No pericholecystic fluid or ga llbladder wall thickening. The common bile duct is normal measuring 4 mm. The liver demonstrates no findings of intrahepatic biliary dilatation. IMPRESSION: Cholelithiasis.
[2020-09-22 12:58] VITALS: BP 137/84; TEMP 98.6; O2SAT 96
== END 2020-09-22 12:19 | disposition home or self-care (01) ==
LOC: ER 07:31
DX: K80.20 Calculus of gallbladder without cholecystitis without obstruction (principal); Z87.442 Personal history of urinary calculi; Z88.0 Allergy status to penicillin; Z88.1 Allergy status to other antibiotic agents
CPT/HCPCS: 36415; 76705; 80048; 80076; 83690; 85025; 96374; 96375; 99284; J2405; J7030

== ENCOUNTER 2020-09-29 05:57 | Day surgery (SDC) | payer SELFPAY ==
--- OUTSIDE RECORDS SUMMARY | 2020-09-29 06:00 | XMS REPORT | Continuity of Care Document ---
:1995 Author Organization [facility] t Address [address] [place] [place] [address] Care Team Providers Name Role Phone Reji Pineda RN Primary Care Physician Unavailable Chani Sanchez Attending Clinician Payers Payer Name Policy Type Policy Number Effective Date Expiration Date S ource Problems Condition Condition Condition Status Onset Resolution Last Treating Co mments Source Name Details Category Date Date Treatment Clinician Date Hydronephr Hydronephr Disease Active [facility] osis with osis with - Meth racheal obstructin obstructin 00:00: st g calculus g calculus 00 Pyelonephr Pyelonephr Disease Active [facility] itis, itis, 4- [facility] acute acute 00:00: st 00 Leukocytos Leukocytos Disease Active [facility] is is - Methodi 00:00: st 00 Sepsis Sepsis Disease Active [place] 4-03 Methodi 00:00: st 00 Allergies, Adverse Reactions, Alerts Allergy Allergy Status Severity Reaction(s) Onset Inactive Treating Comm ents Source Name Type Date Date Clinician Penicill DA Active [place] [facility] 11-03 [place] 00:00: [facility] 00 [facility] Penicill Propensi Active [place] ty to 11-01 [facility] adverse 00:00: st reaction 00 s to drug Social History Social Habit Start Date Stop Date Quantity Comments Source Sex Assigned At [facility] ethodist Alcohol intake 2016-11-08 2016-11-[address] [facility] thodist 00:00:00 00:00:00 non-drinker of alcohol (finding) Smoking Status Start Date Stop Date Source Never smoker [place] Methodis t Medications This patient has no known medications. Procedures This patient has no known procedures. Plan of Care Planned Activity Planned Date Details Comments Source Future Scheduled 2020-03-01 INFLUENZA VACCINE [place] [facility] 00:00:00 [code = INFLUENZA VACCINE] Future Scheduled [address] [facility] thodist Test 00:00:00 malignant neoplasm of cervix (procedure) [code = 497184081] Future Scheduled 2009 COVID-19 VACCINE (1 [place] [employer] Test 00:00:00 of 2) [code = COVID-19 VACCINE (1 of 2)] Encounters Start End Encounter Admission Attending Care Care Encounter Source Date/Time Date/Time Type Type Clinicians Facility Department ID 2020-08-26 2020-08-[id number] 00:00:00 00:00:00 Chani Bernabe AS400 CONSULTANT [id number] REGIONAL [id number] MATERNAL [id number] & CHILD 107 [facility] 2020-05-19 2020-05-19 Office [facility] [id number] 15:02:27 16:06:58 Visit Chani Bernabe AS400 CONSULTANT [id number] [facility] [id number] MATERNAL [id number] & CHILD 107 [facility] Results Test Description Test Time Test Comments Results Result [facility] e Comments - CT ABD PELVIS 2019-02-26 Patient Name: W/O CONT 12:01:00 SANDY MURRIETA Unit No: [id number] EXAMS: CPT CODE: [id number] CT ABD PELVIS W/O CONT [address] CT Abdomen and Pelvis without contrast. Location: [...] at 1201 Reported and signed by: Nadir Shcmitt MD CC: Leda Borjas SENIOR COMMISSARY AGENT Dictated Date/Time: 02/26/2019 (1201) Technologist: Dada Lott CTDI: 12.49 DLP: 735.03 Trnscrpt: 02/26/2019 (1201) [id number] NAME: SANDY MURRIETA [address] [place] [address] PHYS: Leda Domínguez, [place] [address] : 1995 AGE: 24 SEX: F LOC: DEANA PHONE #: [phone] EXAM DATE: 02/26/2019 STATUS: REG ER FAX #: [phone] RAD #: D/C DT PAGE 1 Signed Report Patient Name: SANDY MURRIETA Unit No: [id number] EXAMS: CPT CODE: [id number] CT ABD PELVIS W/O CONT 85201 <Continued> Orig Print D/T: S: 02/26/2019 (1204) [facility] NAME: SANDY MURRIETA [address] [place] [address] Blvd PHYS: SHELL BorjasLeda Emily [place], [place] [address] : 1995 AGE: 24 SEX: F LOC: [place] PHONE #: [phone] EXAM DATE: 02/26/2019 STATUS: REG ER FAX #: [phone] RAD #: D/C DT PAGE 2 Signed [...] NORMAL <50 MG Index/DL 1 NOR MAL [id number] 11:46:00 Test Item Value Reference Range Interpretation Comments LIPASE (test code = LIP) 85 Unit/L 114-286 L [id number] 11:43:00 Test Item Value Reference Range Interpretation Comments LIPASE (test code = LIP) 85 Unit/L 114-286 L HEPATIC FUNCTION [id number] 11:43:00 Test Item Value Reference Range Interpretation [...] <50 MG 1 NORMAL = LIPINDEX) Index/DL UA RFLX MICR CULT IF [id number] 11:34:00 Test Item Value Reference Range Interpretation [...] Criteria Indication for culture: abdominal painUR HCG [id number] 11:34:00 Test Item Value Reference Range Interpretation [...] 0-3 Indication for culture: abdominal painUR HCG [id number] 11:32:00 Test Item Value Reference Range Interpretation Comments UR HCG QUAL (test NEGATIVE NEG Very dilut e urines with a code = HCGQLU) low specific gravity may notcontain repr esentative levels of hCG. Indication for culture: abdominal painCBC W/O [id number] 11:29:00 Test Item Value Reference Range Interpretation [...] 11.0 fL 6.8-11.2 N MPV) CHEMISTRY 7 [id number] 11:20:00 Test Item Value Reference Range Interpretation [...] 71-165 N code = GFRBED) CHEMISTRY 7 [id number] 11:20:00 Test Item Value Reference Range Interpretation [...] code = GFRBED) - CT ABD PELVIS [id number] 01:36:00 Patient Name: SANDY MURRIETA Unit No: [id number] EXAMS: CPT CODE: [id number] CT ABD PELVIS W/CONT [address]9890 CT ABDOMEN AND PELVIS WITH IV CONTRAST [...] by: Juju Soni MD CC: Tess Zheng SENIOR COMMISSARY AGENT Dictated Date/Time: 11/04/2018 (135) Technologist: Carlos Antonio - Agency CTDI: 12.49 DLP: 741.46 Trnscrpt: 11/04/2018 (135) [id number] [facility] NAME: SANJEEV MURRIETA[address] PHYS: Tess Coronado [place] [address] : 1995 AGE: 23 SEX: F LOC: [facility] PHONE #: [phone] EXAM DATE: 11/04/2018 STATUS: REG ER FAX #: [phone] RAD #: D/C DT PAGE 1 Signed Report Patient Name: SANDY MURRIETA Unit No: [id number] EXAMS: CPT CODE: [id number] CT ABD PELVIS W/CONT 23376 <Continued> Orig Print D/T: S: 11/04/2018 (0140) [facility] NAME: GLENNY[address] PHYS: Tess [place] [address] : 1995 AGE: 23 SEX: F LOC: B.ERS PHONE #: [phone] EXAM DATE: 11/04/2018 STATUS: REG ER FAX #: [phone] RAD #: D/C DT PAGE 2 Signed ReportURINALYSIS [id number] 01:13:00 Test Item Value Reference Range Interpretation [...] MOD /LPF NONE A MUCU) UR HCG [id number] 01:13:00 Test Item Value Reference Range Interpretation Comments UR HCG QUAL (test NEGATIVE NEG Very dilut e urines with a code = HCGQLU) low specific gravity may notcontain repr esentative levels of hCG. URINALYSIS [id number] 01:10:00 Test Item Value Reference Range Interpretation [...] code = RBCU) #RBC/HPF 0-3 UR HCG [id number] 01:10:00 Test Item Value Reference Range Interpretation [...] <2 NG/ML. Specimen comments: SEPSIS WORKUPBASIC METABOLIC [id number] 23:09:00 Test Item Value Reference Range Interpretation [...] LIPINDEX) Index/DL Specimen comments: SEPSIS WORKUPHEPATIC FUNCTION [id number] 23:09:00 Test Item Value Reference Range Interpretation [...] N code = ALKP) Specimen comments: SEPSIS [id number] 23:09:00 Test Item Value Reference Range Interpretation Comments LIPASE (test code = LIP) 80 Unit/L 114-286 L Specimen comments: SEPSIS [id number] 23:09:00 Test Item Value Reference Range Interpretation [...] change s in troponin levelscharacter istic of [place]. Specimen comments: SEPSIS WORKUP- US ABDOMEN [id number] 23:06:00 Patient Name: SANDY MURRIETA Unit No: [id number] EXAMS: CPT CODE: [id number] US ABDOMEN LTD 83708 Site ID: [id number] Abdominal ultrasound, limited (Right [...] Fernández MD Technologist: Mulu Fernández Trnscrbd D/ (0813) [id number] Probe: Orig Print D/T: S: 11/03/2018 (1279) Probe: [facility] NAME: SANDY MURRIETA [address] [place] [address] PHYS: Krystian Ott [place], [place] [address] : 1995 AGE: 23 SEX: F LOC: DEANA PHONE #: [phone] EXAM DATE: 11/03/2018 STATUS: REG ER FAX #: [phone] RAD NO: Page 1 Signed ReportCBC W/O [id number] 22:50:00 Test Item Value Reference Range Interpretation [...] 10.6 fL 6.8-11.2 N MPV) LACTIC ACID [id number] 22:41:00 Test Item Value Reference Range Interpretation Comments LACTIC ACID POC (test code = 0.67 MMOL/L i 0.40-2.00 N LACTP) - XR CHEST 1 [id number] 21:15:00 FAX: eTss Zheng NP [phone] [place]: E St: PRE Patient Name: SANDY MURRIETA Unit No: [id number] EXAMS: CPT CODE: [id number] XR CHEST 1 V 10499 EXAMINATION: - XR CHEST 1 V. LOCATION: [...] 11/03/2018 (2117) [facility] NAME: SANDY MURRIETA [address] [place] [address] PHYS: Tess Coronado NP, [place] [address] : 1995 AGE: 23 SEX: F LOC: B.ERS PHONE #: [phone] EXAM DATE: 11/03/2018STATUS: PRE ER FAX #: [phone] RAD NO: DC Dt: PAGE 1 Signed Report
[2020-09-29 06:49] LABS: Absolute Lymphocytes (CBC) 2.1 K/uL (0.7-4.9); Basophils % 0.4 % (0-1.3); Hematocrit 39.6 % (36.0-45.0); Lymphocytes % 25.2 % (15.3-44.8); MPV 9.3 fL (7.6-11.3); RBC Red Blood Cell Count 4.58 M/uL (3.86-4.86)
[2020-09-29] MEDS ORDERED: ONDANSETRON 4 MG/2 ML VIAL ONE ×2 (06:59→10:36)
[2020-09-29] MEDS ORDERED: MORPHINE 4 MG/ML SYR ONE ×2 (06:59→07:47)
[2020-09-29] MEDS ORDERED: NA CHLORIDE 0.9% 1,000 ML ONE (07:00)
[2020-09-29 07:07] LABS: ALT/SGPT 36 U/L (12-78); AST/SGOT 24 U/L (15-37); Albumin 3.6 g/dL (3.4-5.0); Alkaline Phosphatase 83 U/L (45-117); BUN Blood Urea Nitrogen 16 mg/dL (7-18); Bicarbonate 28 mmol/L (21-32); Bilirubin Direct < 0.1 mg/dL (0-0.2); Bilirubin Total 0.3 mg/dL (0.2-1.0); Glucose Level 100 mg/dL (74-106); Lipase 255 U/L (73-393); Potassium 3.7 mmol/L (3.5-5.1); Protein, Total 7.4 g/dL (6.4-8.2); Sodium Level 140 mmol/L (136-145)
[2020-09-29 07:24] LABS: Urine Blood TRACE (NEG); Urine Glucose NEGATIVE (NEG); Urine Protein 1+ (NEG); Urine Specific Gravity 1.025 (1.005-1.030); Urine pH 6.5 (5.0-7.0)
--- NOTE | 2020-09-29 08:04 | RAD REPORT ---
EXAM DESCRIPTION: US - Abdomen Exam Limited - 09/29/2020 7:49 am CLINICAL HISTORY: RUQ pain;Abd pain COMPARISON: Abdomen Exam Limited dated 09/22/2020 FINDINGS: Multiple small mobile gallstones are again identified. No gallbladder wall thickening. No significant pericholecystic fluid is identifiable. Gallbladder is not clearly different from the Febr examination. No common duct stone or biliary tree dilatation identified. IMPRESSION: Multi stone cholelithiasis similar to the September 22 study. No duct stone identifiable and no biliary tree dilatation.
--- NOTE | 2020-09-29 08:26 | EDPHYS ---
Physician Documentation [facility] Name: Gloria Ibarra Age: 25 yrs Sex: Female : 1995 Arrival Date: 09/29/2020 Time: 05:57 Bed 16 Private MD: ED Physician Daniel Naik HPI: 09/29 06:47 This 25 yrs old Female presents to ER via Ambulatory with complaints of mh7 Abdominal Cramping. 06:48 The patient presents with abdominal pain in the right upper quadrant. Onset: The mh7 symptoms/episode began/occurred today. 06:48 The symptoms do not radiate. Associated signs and symptoms: Pertinent negatives: mh7 nausea, vomiting, and diarrhea, nausea and vomiting, anorexia, blood in stools, chest pain, constipation, diarrhea, dysuria, fever, headache, hematuria, nausea, palpitations, shortness of breath, vaginal discharge, vomiting, vomiting blood. The symptoms are described as intermittent, vague, waxing/waning. Modifying factors: The symptoms are alleviated by nothing, the symptoms are aggravated by food. Severity of pain: At its worst the pain was moderate today, in the emergency department the pain is unchanged. The patient has been recently seen at the [facility] Emergency Department, last week. 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 - Social history:: Smoking status: Patient denies any tobacco usage or history of. Patient/guardian denies using alcohol, street drugs. ROS: 06:48 Constitutional: Negative for fever, chills, and weight loss, Eyes: Negative for injury, mh7 pain, redness, and discharge, ENT: Negative for injury, pain, and discharge, Neck: Negative for injury, pain, and swelling, Cardiovascular: Negative for chest pain, palpitations, and edema, Respiratory: Negative for shortness of breath, cough, wheezing, and pleuritic chest pain, Back: Negative for injury and pain, : Negative for injury, bleeding, discharge, and swelling, MS/Extremity: Negative for injury and deformity, Skin: Negative for injury, rash, and discoloration, Neuro: Negative for headache, weakness, numbness, tingling, and seizure, Psych: Negative for depression, anxiety, suicide ideation, homicidal ideation, and hallucinations, Allergy/Immunology: Negative for hives, rash, and allergies, Endocrine: Negative for neck swelling, polydipsia, polyuria, polyphagia, and marked weight changes, Hematologic/Lymphatic: Negative for swollen nodes, abnormal bleeding, and unusual bruising. Exam: 06:48 Constitutional: This is a well developed, well nourished patient who is awake, alert, mh7 and in no acute distress. Head/Face: Normocephalic, atraumatic. Eyes: Pupils equal round and reactive to light, extra-ocular motions intact. Lids and lashes normal. Conjunctiva and sclera are non-icteric and not injected. Cornea within normal limits. Periorbital areas with no swelling, redness, or edema. Neck: Trachea midline, no thyromegaly or masses palpated, and no cervical lymphadenopathy. Supple, full range of motion without nuchal rigidity, or vertebral point tenderness. No Meningismus. Chest/axilla: Normal chest wall appearance and motion. Nontender with no deformity. No lesions are appreciated. Cardiovascular: Regular rate and rhythm with a normal S1 and S2. No gallops, murmurs, or rubs. Normal PMI, no JVD. No pulse deficits. Respiratory: Lungs have equal breath sounds bilaterally, clear to auscultation and percussion. No rales, rhonchi or wheezes noted. No increased work of breathing, no retractions or nasal flaring. 06:48 Back: No spinal tenderness. No costovertebral tenderness. Full range of motion. Skin: Warm, dry with normal turgor. Normal color with no rashes, no lesions, and no evidence of cellulitis. MS/ Extremity: Pulses equal, no cyanosis. Neurovascular intact. Full, normal range of motion. Neuro: Awake and alert, GCS 15, oriented to person, place, time, and situation. Cranial nerves II-XII grossly intact. Motor strength 5/5 in all extremities. Sensory grossly intact. Cerebellar exam normal. Normal gait. Psych: Awake, alert, with orientation to person, place and time. Behavior, mood, and affect are within normal limits. 06:48 Abdomen/GI: Inspection: obese Bowel sounds: normal, in all quadrants, Palpation: moderate abdominal tenderness, in the right upper quadrant, Rectal exam: the exam is deferred, because of patient request, Indicators: McBurney's point is not tender, Monsalve's sign is negative, Rovsing's sign is negative, Obturator sign is negative, Psoas sign is negative, Liver: no appreciated palpable abnormalities, Hernia: not appreciated. Vital Signs: 06:10 BP 136 / 78; Pulse 84; Resp 16; Temp 98.1(O); Pulse Ox 98% on R/A; Weight 99.79 kg (R); jb4 Height 5 ft. 6 in. (167.64 cm) (R); Pain 10/10; 07:17 BP 125 / 83; Pulse 79; Resp 17 S; Pulse Ox 99% on R/A; jd3 08:35 BP 117 / 71; Pulse 70; Resp 16 S; Pulse Ox 100% on R/A; jd3 06:10 Body Mass Index 35.51 (99.79 kg, 167.64 cm) jb4 MDM: 07:15 Patient medically screened. rn 08:18 ED course: Consulted with Dr. Colón, will come and evaluate patient, given pain not rn controlled. No cholecystitis. . 08:24 Differential diagnosis: cholecystitis, Cholelithiasis, gastritis, gastroesophageal rn reflux disease, non-specific abd pain, pancreatitis, Peptic Ulcer Disease. Data reviewed: vital signs, nurses notes, lab test result(s), radiologic studies, ultrasound, and as a result, I will admit patient. Counseling: I had a detailed discussion with the patient and/or guardian regarding: the historical points, exam findings, and any diagnostic results supporting the discharge/admit diagnosis, lab results, radiology results, the need for further work-up and treatment in the hospital. Response to treatment: the patient's symptoms have mildly improved after treatment, and as a result, I will admit patient. 09/29 06:23 Order name: Basic Metabolic Panel [facility] 09/29 06:23 Order name: CBC with Diff [facility] 09/29 06:23 Order name: Hepatic Function [facility] 09/29 06:23 Order name: Lipase [facility] 09/29 06:24 Order name: Basic Metabolic Panel; Complete Time: 08:12 EDMS 09/29 06:24 Order name: CBC with Automated Diff; Complete Time: 08:12 EDMS 09/29 06:24 Order name: Liver (Hepatic) Function; Complete Time: 08:12 EDMS 09/29 06:24 Order name: Lipase; Complete Time: 08:12 EDMS 09/29 06:52 Order name: US Abdomen Limited; Complete Time: 08:12 7 09/29 07:17 Order name: Urine Dipstick--Ancillary (enter results); Complete Time: 08:12 em1 09/29 07:17 Order name: Urine --Ancillary (enter results); Complete Time: 08:12 1 09/29 06:23 Order name: IV Saline Lock; Complete Time: 06:32 mh7 09/29 06:23 Order name: Labs collected and sent; Complete Time: 06:32 7 09/29 06:23 Order name: Urine Dipstick-Ancillary (obtain specimen); Complete Time: 07:04 7 09/29 06:23 Order name: Urine Test (obtain specimen); Complete Time: 07:03 mh7 Administered Medications: 06:50 Drug: NS 0.9% 1000 ml Route: IV; Rate: 1000 ml; Site: left antecubital; jb4 07:50 Follow up: Response: No adverse reaction; IV Status: Completed infusion jd3 06:51 Drug: Zofran (Ondansetron) 4 mg Route: IVP; Site: left antecubital; jb4 07:50 Follow up: Response: No adverse reaction jd3 06:54 Drug: morphine 4 mg Route: IVP; Site: left antecubital; jb4 07:50 Follow up: Response: No adverse reaction; RASS: Alert and Calm (0) jd3 07:33 Drug: morphine 4 mg Route: IVP; Site: left antecubital; jd3 08:30 Follow up: Response: No adverse reaction; RASS: Alert and Calm (0) jd3 Disposition: 09/29/20 08:26 Hospitalization ordered by Mushtaq Colón for Observation. Preliminary diagnosis is Cholelithiasis. - Bed requested for Telemetry/MedSurg (observation). - Status is Observation. jd3 - Condition is Stable. - Problem is an ongoing problem. - Symptoms have improved. Signatures: Dispatcher [employer] EDDaniel Naranjo MD MD rn Bryson, James, RN RN jb4 Merrick Dyer RN RN jSincere Elizabeth MD MD mh7 Corrections: (The following items were deleted from the chart) 08:55 08:26 Hospitalization Ordered by Mushtaq Colón MD for Observation. Preliminary jd3 diagnosis is Cholelithiasis. Bed requested for Telemetry/MedSurg (observation). Status is Observation. Condition is Stable. Problem is an ongoing problem. Symptoms have improved. rn
--- NOTE | 2020-09-29 08:26 | ER ---
Nurse's Notes [facility] Name: Gloria Ibarra Age: 25 yrs Sex: Female : 1995 Arrival Date: 09/29/2020 Time: 05:57 Bed 16 Private MD: Diagnosis: Cholelithiasis Presentation: 09/29 06:10 Chief complaint: Patient states: I was here 1 week ago and was diagnosed with galstone. jb4 I was unable to follow up because I don't have insurance. Now my pain is back in my RUQ and is 05/10. 06:10 Coronavirus screen: Client denies travel out of the [place] in the last 14 days. At this jb4 time, the client does not indicate any symptoms associated with coronavirus-19. Ebola Screen: No symptoms or risks identified at this time. Initial Sepsis Screen: Does the patient meet any 2 criteria? No. Patient's initial sepsis screen is negative. Does the patient have a suspected source of infection? Yes: Acute abdominal pain. Risk Assessment: Do you want to hurt yourself or someone else? Patient reports no desire to harm self or others. Onset of symptoms was September 29, 2020. Transition of care: patient was not received from another setting of care. 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 - Social history:: Smoking status: Patient denies any tobacco usage or history of. Patient/guardian denies using alcohol, street drugs. Screenin:20 Abuse screen: Denies threats or abuse. Nutritional screening: No deficits noted. jb4 Tuberculosis screening: No symptoms or risk factors identified. Fall Risk None identified. Assessment: 06:20 General: Appears in no apparent distress. uncomfortable, Behavior is calm, cooperative, jb4 appropriate for age. Pain: Complains of pain in right upper quadrant Pain does not radiate. Pain currently is 10 out of 10 on a pain scale. Quality of pain is described as stabbing, Pain began 0000. Neuro: Level of Consciousness is awake, alert, obeys commands, Oriented to person, place, time, situation. Cardiovascular: Patient's skin is warm and dry. Respiratory: Airway is patent Respiratory effort is even, unlabored, Respiratory pattern is regular, symmetrical. GI: Abdomen is round non-distended, obese, Reports upper abdominal pain. : No signs and/or symptoms were reported regarding the genitourinary system. EENT: No signs and/or symptoms were reported regarding the EENT system. Derm: Skin Skin is pink, warm \T\ dry. Musculoskeletal: Circulation, motion, and sensation intact. Range of motion: intact in all extremities. 07:16 General: Appears in no apparent distress. uncomfortable, Behavior is calm, cooperative, jd3 appropriate for age. Pain: Complains of pain in right upper quadrant Quality of pain is described as sharp. Neuro: Level of Consciousness is awake, alert, obeys commands, Oriented to person, place, time, situation. Cardiovascular: Capillary refill < 3 seconds Patient's skin is warm and dry. Respiratory: Airway is patent Respiratory effort is even, unlabored, Respiratory pattern is regular, symmetrical. GI: Abdomen is round Abdomen is tender to palpation in right upper quadrant Reports upper abdominal pain. : No signs and/or symptoms were reported regarding the genitourinary system. EENT: No signs and/or symptoms were reported regarding the EENT system. Derm: Skin is intact, Skin is dry, Skin is normal, Skin temperature is warm. Musculoskeletal: Circulation, motion, and sensation intact. Range of motion: intact in all extremities. 08:35 Reassessment: Patient appears in no apparent distress at this time. Patient and/or jd3 family updated on plan of care and expected duration. Pain level reassessed. Patient is alert, oriented x 3, equal unlabored respirations, skin warm/dry/pink. Dr. Colón at bedside. Vital Signs: 06:10 BP 136 / 78; Pulse 84; Resp 16; Temp 98.1(O); Pulse Ox 98% on R/A; Weight 99.79 kg (R); jb4 Height 5 ft. 6 in. (167.64 cm) (R); Pain 10/10; 07:17 BP 125 / 83; Pulse 79; Resp 17 S; Pulse Ox 99% on R/A; jd3 08:35 BP 117 / 71; Pulse 70; Resp 16 S; Pulse Ox 100% on R/A; jd3 06:10 Body Mass Index 35.51 (99.79 kg, 167.64 cm) jb4 ED Course: 05:57 Patient arrived in ED. cl3 06:10 Ameya Torrez RN is Primary Nurse. jb4 06:12 Sincere Serna MD is Attending Physician. 7 06:19 Triage completed. jb4 06:20 Arm band placed on right wrist. jb4 06:20 Patient has correct armband on for positive identification. Bed in low position. Call jb4 light in reach. Side rails up X 1. Pulse ox on. NIBP on. 06:30 Initial lab(s) drawn, by mn, sent to lab. Inserted saline lock: 20 gauge in left jb4 antecubital area, using aseptic technique. Blood collected. 07:15 Attending Physician role handed off by Sincere Serna MD rn 07:15 Daniel Naik MD is Attending Physician. rn 07:49 US Abdomen Limited In Process Unspecified. EDMS 08:25 Mushtaq Colón MD is Hospitalizing Provider. rn 08:53 No provider procedures requiring assistance completed. Patient admitted, IV remains in jd3 place. Administered Medications: 06:50 Drug: NS 0.9% 1000 ml Route: IV; Rate: 1000 ml; Site: left antecubital; jb4 07:50 Follow up: Response: No adverse reaction; IV Status: Completed infusion jd3 06:51 Drug: Zofran (Ondansetron) 4 mg Route: IVP; Site: left antecubital; jb4 07:50 Follow up: Response: No adverse reaction jd3 06:54 Drug: morphine 4 mg Route: IVP; Site: left antecubital; jb4 07:50 Follow up: Response: No adverse reaction; RASS: Alert and Calm (0) jd3 07:33 Drug: morphine 4 mg Route: IVP; Site: left antecubital; jd3 08:30 Follow up: Response: No adverse reaction; RASS: Alert and Calm (0) j Outcome: 08:26 Decision to Hospitalize by Provider. rn 08:53 Admitted to OR accompanied by nurse, via stretcher, with chart, Report called to francia report given to Sona JACKSON from OR 08:53 Condition: stable 08:53 Instructed on need for surgery Demonstrated understanding of instructions. 08:55 Patient left the ED. francia Signatures: Dispatcher [employer] EDDaniel Naranjo MD MD rn Bryson, James, RN RN jb4 Merrick Dyer RN RN jd3 Lewis, Charde cl3 Sincere Serna MD MD mh7 Corrections: (The following items were deleted from the chart) 08:37 08:35 Reassessment: Patient appears in no apparent distress at this time. Patient jd3 and/or family updated on plan of care and expected duration. Pain level reassessed. Patient is alert, oriented x 3, equal unlabored respirations, skin warm/dry/pink. francia
[2020-09-29] MEDS ORDERED: Ringers Lactate 1,000 ML IV ONE (09:25)
[2020-09-29] MEDS ORDERED: DOXYCYCLINE 100 MG in NA CHLORIDE 0.9% 100 ML IVPB ONE (09:30)
[2020-09-29] MEDS ORDERED: propofoL 200 MG/20 ML VIAL IV ONE (09:55)
[2020-09-29] MEDS ORDERED: FENTANYL CITR 100 MCG/2 ML ONE ×2 (09:55→11:26)
[2020-09-29] MEDS ORDERED: MIDAZOLAM HCL 2 MG/2 ML INJ ONE (09:55)
[2020-09-29] MEDS ORDERED: ROCURONIUM 50 MG/5 ML VIAL IV ONE (09:55)
[2020-09-29] MEDS ORDERED: LIDOCAINE 1% MPF 5 ML VIAL ONE (09:55)
[2020-09-29] MEDS ORDERED: dexAMETHasone 10 MG/ML VIAL ONE (10:34)
[2020-09-29] MEDS ORDERED: KETOROLAC 30 MG/ML INJ ONE (10:34)
[2020-09-29] MEDS ORDERED: NEOSTIGMINE 1 MG/ML -5 ML ONE (10:36)
[2020-09-29] MEDS ORDERED: GLYCOPYRROLATE 0.2 MG/ML SYR ONE ×2 (10:36)
--- NOTE | 2020-09-29 10:39 | P.BOP ---
Preoperative diagnosis: acute cholecystitis, symptomatic cholelithiasis Postoperative diagnosis: same, umbilical hernia Primary procedure: 1. 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
[2020-09-29] MEDS ORDERED: PROMETHAZINE INJ 25 MG/ML AMP ONE (11:13)
[2020-09-29 11:44] VITALS: BP 119/73; TEMP 96.5; O2SAT 96
[2020-09-29] MEDS ORDERED: CODEINE 30MG/APAP 300MG TAB ONE (12:12)
--- NOTE | 2020-09-29 12:25 | DS ---
Diagnoses: Acute cholecystitis, symptomatic cholelithiasis, umbilical hernia. Procedures: Laparoscopic cholecystectomy. Disposition: Home. Activity: As tolerated. No heavy lifting. Plan: Follow up in my office in 1 week. Call for appointment at [phone]. Keep area dry for 48 cat rs, then may shower. Keep otis intact. Medications: Include Bactrim DS p.o. b.i.d. She is already taking that and then we are going to add on Tylenol No.3 q.4 hours p.r.n. pain and Zofran 4 q.6 p.r.n. nausea. PATRICIA/JERICHO Voice ID: [id number] Report ID: [id number]
--- NOTE | 2020-09-29 12:34 | OP ---
Date of Procedure: 09/29/2020 Surgeon: Mushtaq Colón MD Preoperative Diagnoses: Acute cholecystitis, symptomatic cholelithiasis, and morbid obesity. Postoperative Diagnoses: Acute cholecystitis, symptomatic cholelithiasis, and morbid obesity. Procedure: Laparoscopic cholecystectomy, repair of the umbilical hernia. Anesthesia: General plus local. Findings: Acute cholecystitis, symptomatic cholelithiasis. Indications: This is the case of a 25-year-old patient, who comes to us with intractable right upper quadrant pain, Monsalve sign positive. It is not her first visit to the ER, but at this time, the leif n did not go away with pain medications and I was asked to consider the patient for cholecystectomy. She ate some chicken wings last night. She was advised the importance of losing weight and also hav ing a low-fat diet. She understood the benefits, alternatives, and risks of laparoscopic, possible o pen cholecystectomy, which include, but not limited to infection, bleeding, damage to adjacent struct ures, anesthesia complication, choledocholithiasis, bile leak, pancreatitis, SC, and even . She also understands this may not relieve the symptoms. She may need more than one surgical interventio n. She understood, signed a consent. Procedure In Detail: The patient was brought to the operating room, placed in supine position. Anes thesia was done without complication. Abdominal area was prepped and draped in usual sterile fashion . Marcaine 0.5% was injected for local anesthetic followed by sharp incision of the skin in the infr aumbilical region. Incision was carried down to subcutaneous tissue. We noticed the patient to have umbilical hernia. Umbilical sac was removed from the umbilical skin. The hernia sac was opened. T he omentum was found, reduced into the abdominal cavity. The hernia sac was removed. Fascial edges were cleaned. We extended incision and then this allowed me to put Vicryl #1 inside the fascia. Has son trocar was carefully introduced. Pneumoperitoneum was obtained. I placed 3 more trocars, 5 mm e ach one of them in the right upper quadrant under direct visualization. Due to distention of the gal lbladder, an Endo needle was placed under direct visualization to aspirate the gallbladder. The need le was removed under direct visualization. This allowed me to put a grasper in the fundus of the gal lbladder, another grasper in the infundibulum retracting the gallbladder in the inferolateral fashion exposing the triangle of Calot, and obtaining critical view. The cystic duct and cystic artery were clearly isolated free circumferentially and a connection between those and the gallbladder was clear ly identified. I proceeded to ligate those by using at least 3 clips proximal, 1 clip distal, ligati on in middle. Same was done with the cystic artery. No bile leak. No bleeding. The gallbladder wa s removed from the liver using Bovie cauterizer and removed from abdominal cavity using EndoCatch thr ough umbilical incision. The area was inspected once again. No bile leak. No bleeding. Clips were intact. At that moment, I proceeded to remove the trocars under direct vision, deflated pneumoperit oneum, closed the fascia and umbilical hernia with #1 Vicryl. Irrigated subcutaneous tissue, closed with 3-0 chromic, and skin with otis. Sponge count and instrument counts correct. The patient to lerated the procedure well. The patient was sent to recovery in stable condition. PATRICIA/JERICHO Voice ID: [id number] Report ID: [id number]
--- NOTE | 2020-09-29 14:10 | HP ---
Date of Admission: 09/29/2020 Reason For Service: Acute cholecystitis, symptomatic cholelithiasis, intractable right upper quadran t abdominal pain. History Of Present Illness: This is the case of a female, who comes to us with epigastric right uppe r quadrant pain, radiating to the back, associated with nausea and vomiting. The patient was diagnos ed about a week ago with cholelithiasis at our ER. She was sent home, advised to see the primary doc lexus, but she has not done that yet. Last night, she decided to go and eat some chicken wings and thi s morning developed this right upper quadrant pain once again, at times intractable. She came to the ER and a surgical consult was obtained for cholecystectomy. She denies any dysuria, hematuria, roopa tochezia, melena. Denies any recent traveling out of the country. Denies any family member sick at home. Review of Systems: Ten points otherwise unremarkable. See H and P. Past Medical History: Kidney stones, cholelithiasis, morbid obesity, GE reflux, peptic ulcer disease . Medications: None. Allergies: LEVAQUIN AND PENICILLIN. Past Surgical History: Kidney stone removal. Social History: She does smoke. She does drink alcohol. Family History: Sister with gallbladder disease. Physical Examination: General: The patient is awake, alert, complaining of right upper quadrant pain. HEENT: Pupils are equal and reactive. Anicteric. Neck: Supple. Chest: Clear. Abdomen: Epigastric right upper quadrant pain with Monsalve sign positive. Breasts: Deferred. Pelvic: Deferred. Rectal: Deferred. Extremities: Good capillary refill. Neurologic: Cranial nerves 2 through 12 grossly within normal limits. Laboratory Data: Blood work shows WBC count of 8.4 with hemoglobin of 13. Sodium is 140, chloride i s 109, total bilirubin of 0.3. Lipase 255. Abdominal ultrasound interpreted by Dr. Treadwell as cholelithiasis similar to a week ago. Assessment: This is a 25-year-old patient, who comes to us with intractable right upper quadrant leif n. A week ago, she had came to the ER. She was sent home with some pain medications and she has not been able to look for medical reception specialist. Last night once again, she ate greasy food and then came t davy with pain and at this time, it is not going away with pain medications. She took pain medicatio n at home herself and still having intractable right upper quadrant abdominal pain. So, a t this time surgeon was called and we explained to her the options of laparoscopic, possible open cho lecystectomy with benefits, alternatives, and risks include, but not limited to infection, bleeding, damage to adjacent structures, anesthesia complication, choledocholithiasis, bile leak, pancreatitis, [place], and even . She also understands this may not relieve any symptoms. She might need more th an one surgical intervention. She would also want to go home. She wants to have the surgery done du ring this admission. The patient was booked in OR. PATRICIA/JERICHO Voice ID: [id number]
== END 2020-09-29 12:32 | disposition home or self-care (01) ==
LOC: ER 05:57 → OR 11:42
PROVIDERS: ATTEND Surgery
PROC: 0WQF0ZZ Repair Abdominal Wall, Open Approach (ICD-10-PCS; 2020-09-29)
PROC: 0FT44ZZ Resection of Gallbladder, Percutaneous Endoscopic Approach (ICD-10-PCS; principal; 2020-09-29 09:30)
DX: K80.10 Calculus of gallbladder with chronic cholecystitis without obstruction (principal); Z20.822 Contact with and (suspected) exposure to COVID-19
CPT/HCPCS: 36415; 76705; 80048; 80076; 81003; 81025; 83690; 85025; 88304; 96361; 96374; 96375; 99285; J1100; J2250; J2405; J2550; J2704; J2710; J3010; J7030; J7120; U0003